=== PATIENT | female | born 1990 | race Caucasian/White ===

== ENCOUNTER 2017-01-20 14:59 | Emergency (ER) | payer OTHER ==
[2017-01-20 15:21] VITALS: BP 112/79
--- NOTE | 2017-01-20 15:55 | UC ---
Throat Pain/Nasal Miko HPI - HPI Summary HPI Summary: 26 [address] female [address] body aches and sore throat, concerned about possible strep throat, exposed by family member. Seen at [facility] yesterday, for dizziness and low blood pressure, diagnosed with vertigo. and daughter with (+) strep at home [ End ] - History of Current Complaint Chief Complaint: UCGeneralIllness Stated Complaint: BODY ACHES,FEVER,THROAT Time Seen by Provider: 01/20/17 15:39 Hx Last Menstrual Period: 01/05/17 Onset/Duration: Sudden Onset - Allergies/Home Medications Allergies/Adverse Reactions: Allergies Allergy/AdvReac Type Severity Reaction Status Date / Time Hydrocodone Allergy Anaphylatic Verified 01/20/17 15:21 Shock Home Medications: Home Medications Escitalopram Oxalate [Lexapro 20 mg] 20 mg PO DAILY 01/20/17 [History Confirmed 01/20/17] PMH/Surg Hx/FS Hx/Imm Hx Previously Healthy: Yes - Surgical History Surgical History: Yes Surgery Procedure, Year, and Place: GALL BLADDER, SEBCEOUS CYSTS REMOVED FROM NECK - Family History Known Family History: Positive: None - Social History Lives: With Family Alcohol Use: None Substance Use Type: None Smoking Status (MU): Light Every Day Tobacco Smoker Review of Systems ENT: Sore Throat, Nasal Discharge Is Patient Immunocompromised?: No All Other Systems Reviewed And Are Negative: Yes Physical Exam Triage Information Reviewed: Yes Appearance: Well-Appearing, No Pain Distress, Well-Nourished Vital Signs: Initial Vital Signs Temp 97.9 F 01/20/17 15:16 Pulse 78 01/20/17 15:16 Resp 16 01/20/17 15:16 BP 112/79 01/20/17 15:16 Pulse Ox 100 01/20/17 15:16 Eye Exam: Normal ENT Exam: Normal ENT: Positive: Hearing grossly normal, Pharyngeal erythema, TMs normal. Negative: Tonsillar swelling, Tonsillar exudate Dental Exam: Normal Neck exam: Normal Neck: Positive: 1 Respiratory Exam: Normal Cardiovascular Exam: Normal Musculoskeletal Exam: Normal Neurological Exam: Normal Psychological Exam: Normal Skin Exam: Normal Throat Pain/Nasal Course/Dx - Differential Dx/Diagnosis Differential Diagnosis/HQI/PQRI: Pharyngitis, Sinusitis, Tonsillitis, URI Provider Diagnoses: Strep throat Discharge - Discharge Plan Condition: Good Disposition: HOME Prescriptions: Amoxicillin PO (*) [Amoxicillin 500 MG CAP*] 500 mg PO Q12H #20 cap Patient Education Materials: Strep Throat (ED) Referrals: No Primary Care Phys,NOPCP [Medical Doctor] - Additional Instructions: Follow up with any concerns you have. Change your toothbrush please. Your strep test was positive today
== END 2017-01-20 16:16 | disposition home or self-care (01) ==
LOC: UCCORT 14:59
DX: J02.0 Streptococcal pharyngitis (principal); F17.200 Nicotine dependence, unspecified, uncomplicated
CPT/HCPCS: 87651; 99202; G0463

== ENCOUNTER 2017-03-05 20:06 | Emergency (ER) | payer OTHER ==
[2017-03-05 20:52] VITALS: BP 124/70
[2017-03-05] MEDS ORDERED: Amoxicillin/Clavulanate TAB* 875 MG PO ONE (21:03)
--- NOTE | 2017-03-05 21:17 | UC ---
Throat Pain/Nasal Miko HPI - HPI Summary HPI Summary: 26 y/o female with h/o sinus congestions, headache, body aches, fever, chills overnight worsening over past 2-3 days. tactile fever. no abdominal pains, N /v. no ear pain, throat pain. - History of Current Complaint Chief Complaint: UCRespiratory Stated Complaint: COLD SYMPTOMS Time Seen by Provider: 03/05/17 20:27 Hx Obtained From: Patient Hx Last Menstrual Period: 02/05/17 ?: No Onset/Duration: Sudden Onset, Lasting Days Severity: Moderate - Allergies/Home Medications Allergies/Adverse Reactions: Allergies Allergy/AdvReac Type Severity Reaction Status Date / Time Azithromycin Allergy Hives Verified 03/05/17 20:29 Hydrocodone Allergy Anaphylatic Verified 01/20/17 15:21 Shock Oxycodone Allergy Anaphylatic Verified 03/05/17 20:29 Shock Home Medications: Home Medications Dextromethorphan-Phenylephrine [Day Time Multi-Symptom Co 10-5-325 mg] 2 cap PO ONCE PRN 03/05/17 [History Confirmed 03/05/17] PMH/Surg Hx/FS Hx/Imm Hx Previously Healthy: Yes - Surgical History Surgical History: Yes Surgery Procedure, Year, and Place: GALL BLADDER, SEBCEOUS CYSTS REMOVED FROM NECK - Family History Known Family History: Positive: None - Social History Alcohol Use: None Substance Use Type: None Smoking Status (MU): Light Every Day Tobacco Smoker Type: Cigarettes Amount Used/How Often: 3 cigarettes daily Review of Systems Constitutional: Fever, Chills, Fatigue ENT: Nasal Discharge, Sinus Congestion, Sinus Pain/Tenderness Is Patient Immunocompromised?: No All Other Systems Reviewed And Are Negative: Yes Physical Exam Triage Information Reviewed: Yes Appearance: Well-Appearing, No Pain Distress, Well-Nourished Vital Signs: Initial Vital Signs Temp 97.6 F 03/05/17 20:30 Pulse 84 03/05/17 20:30 Resp 20 03/05/17 20:30 BP 124/70 03/05/17 20:30 Pulse Ox 100 03/05/17 20:30 Vital Signs Reviewed: Yes Eye Exam: Normal ENT: Positive: Pharynx normal, TMs normal - mild fluid behing TM b/l, Sinus tenderness, Uvula midline. Negative: Tonsillar swelling, Tonsillar exudate Neck: Positive: Supple, Nontender, No Lymphadenopathy Respiratory: Positive: Chest non-tender, Lungs clear, Normal breath sounds, No respiratory distress, No accessory muscle use. Negative: Crackles, Rhonchi, Stridor, Wheezing Cardiovascular: Positive: RRR, No Murmur, Pulses Normal Throat Pain/Nasal Course/Dx - Course Course Of Treatment: sinusitis, abx given, follow up with pcp within 2-3 days if no improvement - Differential Dx/Diagnosis Differential Diagnosis/HQI/PQRI: Influenza, Laryngitis, Otitis Media, Pharyngitis Provider Diagnoses: acute sinusitis Discharge - Discharge Plan Condition: Good Disposition: HOME Prescriptions: Amoxicillin/Clavulanate TAB* [Augmentin TAB 875*] 875 mg PO BID #14 tab Patient Education Materials: Sinusitis (ED) Referrals: No Primary Care Phys,NOPCP [Primary Care Provider] - Additional Instructions: - increase fluid intake - antibiotics as directed - motrin/ tylenol for pain, fever - follow up with PCP within 2-3 days if no improvement
== END 2017-03-05 21:34 | disposition home or self-care (01) ==
LOC: UCCORT 20:06
DX: J01.90 Acute sinusitis, unspecified (principal); Z90.49 Acquired absence of other specified parts of digestive tract; Z88.1 Allergy status to other antibiotic agents; Z88.5 Allergy status to narcotic agent; F17.210 Nicotine dependence, cigarettes, uncomplicated
CPT/HCPCS: 99212; A9270-GY; G0463

== ENCOUNTER 2017-12-22 16:56 | Emergency (ER) | payer OTHER ==
[2017-12-22 17:16] VITALS: BP 116/70
--- NOTE | 2017-12-22 18:10 | UC ---
Complaint Female HPI - HPI Summary HPI Summary: Pt c/o sudden onset of urinary frequency, urgency and dysuria X 2-3 days. Pt states she woke last night feeling "chilled and feverish" and took temperature and it was 101. Pt has been taking antipyretic and now is afebrile since 6 am this morning. Pt last took antipyretic at that time. - History Of Current Complaint Chief Complaint: UCGU Stated Complaint: URINARY, BACK PAIN Time Seen by Provider: 12/22/17 18:01 Hx Obtained From: Patient Hx Last Menstrual Period: 12/03/17 ?: No Onset/Duration: Sudden Onset, Lasting Days, Still Present Timing: Constant Severity Initially: Mild Severity Currently: Mild Pain Intensity: 5 Character: Dull, Burning Aggravating Factor(s): Urination Alleviating Factor(s): Meds Associated Signs And Symptoms: Positive: Fever - resolved, Back Pain - Risk Factors Ectopic Risk Factor: Negative Ovarian Torsion Risk Factor: Reproductive Age - Allergies/Home Medications Allergies/Adverse Reactions: Allergies Allergy/AdvReac Type Severity Reaction Status Date / Time MS Azithromycin Allergy Hives Verified 04/08/17 12:01 [Azithromycin] MS Hydrocodone [Hydrocodone] Allergy Anaphylatic Verified 04/08/17 12:01 Shock MS Oxycodone [Oxycodone] Allergy Anaphylatic Verified 04/08/17 12:01 Shock Home Medications: Home Medications Pantoprazole Sodium [Protonix] 20 mg PO DAILY 12/22/17 [History Confirmed ] Pumpkin Seed Extract/Soy Germ [Azo Bladder Control Capsule] 300 mg PO DAILY [History Confirmed 12/22/17] PMH/Surg Hx/FS Hx/Imm Hx Previously Healthy: Yes - Surgical History Surgical History: Yes Surgery Procedure, Year, and Place: GALL BLADDER, SEBCEOUS CYSTS REMOVED FROM NECK. ARTHROSCOPY BILATERAL KNEES - Family History Known Family History: Positive: Cardiac Disease - Social History Occupation: Employed Full-time Lives: With Family Alcohol Use: None Substance Use Type: None Smoking Status (MU): Former Smoker Type: Cigarettes Amount Used/How Often: 3 cigarettes daily Have You Smoked in the Last Year: Yes Review of Systems Constitutional: Fever Skin: Negative Eyes: Negative ENT: Negative Respiratory: Negative Cardiovascular: Negative Gastrointestinal: Negative Genitourinary: Dysuria, Hematuria, Frequency, Urgency Motor: Negative Neurovascular: Negative Musculoskeletal: Negative Neurological: Negative Psychological: Negative Is Patient Immunocompromised?: No All Other Systems Reviewed And Are Negative: Yes Physical Exam Triage Information Reviewed: Yes Appearance: Well-Appearing Vital Signs: Initial Vital Signs Temp 98.4 F 12/22/17 17:11 Pulse 78 12/22/17 17:11 Resp 16 12/22/17 17:11 BP 116/70 12/22/17 17:11 Pulse Ox 100 12/22/17 17:11 Vital Signs Reviewed: Yes Eye Exam: Normal ENT Exam: Normal ENT: Positive: Hearing grossly normal Neck exam: Normal Respiratory Exam: Normal Cardiovascular Exam: Normal Abdomen Description: Positive: Other: - suprapubic tenderness Musculoskeletal Exam: Normal Neurological Exam: Normal Psychological Exam: Normal Skin Exam: Normal Complaint Female Dx - Course Course Of Treatment: Pt took azo prior to arrival to clinic - Differential Dx/Diagnosis Differential Diagnosis/HQI/PQRI: Urinary Tract Infection Provider Diagnoses: dysuria Discharge - Sign-Out/Discharge Documenting (check all that apply): Patient Departure All imaging exams completed and their final reports reviewed: No Studies - Discharge Plan Condition: Stable Disposition: HOME Prescriptions: Cephalexin CAP* [Keflex 500 CAP*] 500 mg PO Q8H #21 cap Patient Education Materials: Dysuria (ED) Referrals: Alysa Guzmán NP [Primary Care Provider] - If Needed - Billing Disposition and Condition Condition: STABLE Disposition: Home
[2017-12-22] MEDS ORDERED: Cephalexin CAP* 500 MG PO ONE (18:11)
== END 2017-12-22 18:20 | disposition home or self-care (01) ==
LOC: UCCORT 16:56
DX: R35.0 Frequency of micturition (principal); Z88.1 Allergy status to other antibiotic agents; Z88.5 Allergy status to narcotic agent; Z87.891 Personal history of nicotine dependence
CPT/HCPCS: 87086; 99212; A9270-GY; G0463

== ENCOUNTER 2018-07-19 13:07 | Emergency (ER) | payer OTHER ==
--- OUTSIDE RECORDS SUMMARY | 2018-07-19 13:31 | XMS REPORT | Continuity of Care Document ---
:1990 External Reference #:[id number] Author Name Joe Dominguez MD Address [address] [place] [address] Care Team Providers Name Role Phone Alysa Guzmán, PNP-BC, PRODUCTION MACHINE TENDER, [place]cl[place] Care Team Information .Net Architect Unavailable Alysa Guzmán, ALEE-BC, PRODUCTION MACHINE TENDER, Ibclc Primary Care Physician Unavailable Payers Date Identification Numbers Payment Provider Subscriber Policy Number: [id number] [place] [employer] Tirso Jones PayID: [id number] [address] [place] [address] Expires: 2018 Policy Number: [id number] Medicaid Rachel Prasad Group Name: 1 2 [address] PayID: [id number] [place] [address] Advance Directives Description No Information Available Problems Date Description Provider Status Onset: 12/15/2013 [facility]arette [facility] Onset: 12/08/2015 Temporomandibular joint disorder Sierra Mabry M.D. Active Onset: 09/12/2016 Knee pain Yaniv Gomez M.D. Active Onset: 10/08/2016 Loose body in knee Elenita Downey, PA Active Onset: 10/08/2016 Chondromalacia Elenita Downey, PA Active Onset: 2016 Derangement of knee Elenita Downey, PA Active Onset: 01/14/2017 Synovial plica of knee Elenita Downey PA Active Onset: 04/23/2017 Pile reducible with difficulty Brien Childress MD,FACS Active Onset: 03/04/2017 Palpitations Francisco Chris Active M.D., [facility] Onset: 03/04/2017 Syncope and collapse Francisco Chris Active M.D., [facility] Onset: 03/04/2017 Anaphylaxis Francisco Chris Active M.D., [facility] Onset: 02/13/2017 Localized, primary osteoarthritis Yaniv Gomez M.D. Active Onset: 03/23/2015 Normal Jennifer Hunt MD Resolved Resolved: 12/08/2015 Onset: 10/31/2016 Anaphylactic shock, unspecified, Yaniv Gomez M.D. Resolved subsequent encounter Resolved: 11/28/2016 Family History Date Family Member(s) Observation Comments Father 53 Father Gastroesophageal Reflux Disease (GERD) Father Hiatal Herna Father Cholecystectomy Father Heart Attack Mother healthy Mother 55 Onset: (age 4 Children 1 Hypoplastic left heart, Months) esophageal atresia. heart & lung disease First Daughter due to RI () First Daughter Congenital Heart Disease Siblings None First Brother Heart Murmur Second Brother Cerebrovascular Accident Second Brother Heart Attack First Sister Gastroesophageal Reflux Disease (GERD) First Sister Breast Cancer Social History Type Date Description Comments Sex Unknown Marital Status Lives With Children Lives With Home Environment Lives with spouse Diet Patient follows no dietary restrictions Occupation Office Services Specialist membership sales advisor Work Status Currently Working Cigarette Use Pack Years - 10 Tobacco Use Start: Unknown Currently smokes 1-5 Cigarettes Daily Smoking Status Reviewed: 06/23/18 Currently smokes 1-5 Cigarettes Daily Smokeless Tobacco Never Used Smokeless Tobacco ETOH Use Denies alcohol use Recreational Drug Use Denies Drug Use Tobacco Use Start: Unknown End: Patient is a former smoker Allergies, Adverse Reactions, Alerts Date Description Reaction Status Severity Comments 12/16/2013 Azithromycin Nausea and Vomiting Active 10/01/2016 Oxycodone Active 2016 [place] Active 08/29/2010 NKDA Inactive Medications Medication Date Status Form Strength Qnty SIG Indications Ordering Provider Adult 06/24/19 Active Chewtabs 0.4-25mg 90uni 1 tab by Z32.01 Joe Dominguez, Gummy/Dha/Folic 19 ts mouth MD Acid every day as directed Ranitidine 150 06/24/19 Active Tablets 150mg 60tab 1 tab Joe Dominguez, Maximum 19 s bid MD Strength Lexapro 11/29/19 Active Tablets 20mg 90tab 1 by F33.1 Ramirez, 18 s mouth Alysa, every PNP-BC, PRODUCTION MACHINE TENDER, day Ibclc Epinephrine Active Solution 0.3mg/0.3 as Yomi, 00 Auto-Inje ML directed SANJEEV Lopez ct Ventolin HFA Active Aerosol 108(90Bas as Pieretti, 00 e) needed Kelsey mcg/Act Ra Vitamin B-1 Active Tablets 100mg Unknown 00 Lidocaine 05/12/19 Hx Gel 2.8-0.55% 100gm apply by K64.9 Ramirez, ISAIAH-Hydrocortis 19 - way of Alysa, one Acetate 05/12/19 rectum PNP-BC, PRODUCTION MACHINE TENDER, With Aloe 19 twice a Ibclc day Lidocaine 05/12/19 Hx Cream 5% 30gm apply to K64.9 Ramirez, (Anorectal) 19 - anal Alysa, 06/24/19 area as PNP-BC, PRODUCTION MACHINE TENDER, 19 needed Ibclc every 4 hours Clonidine HCL 05/12/19 Hx Tablets 0.1mg 120ta take one G47.00 Ramirez 19 - bs to three Alysa, 06/24/19 tablets PNP-BC, PRODUCTION MACHINE TENDER, 19 at Ibclc bedtime as needed Nicorelief 10/08/19 Hx Gum 2mg 50uni 1 by F17.210 Ramirez, 18 - ts mouth as Alysa, 05/12/19 needed PNP-BC, PRODUCTION MACHINE TENDER, 19 Ibclc Sertraline HCL 10/08/19 Hx Tablets 50mg 90tab 1 by F33.1 Ramirez, 18 - s mouth Alysa, 11/29/19 every PNP-BC, PRODUCTION MACHINE TENDER, 18 day Ibclc Benzonatate 05/27/19 Hx Capsules 100mg 30cap 1 by J20.9 Ramirez, 18 - s mouth Alysa, 07/05/19 three PNP-BC, PRODUCTION MACHINE TENDER, 18 times a Ibclc day as needed for cough Amoxicillin/Cla 05/27/19 Hx Tablets 875-125mg 20tab 1 by J20.9 Ramirez vulanate 18 - s mouth Alysa, Potassium 06/07/19 twice a PNP-BC, PRODUCTION MACHINE TENDER, 18 day for Ibclc 10 days Rectiv 04/23/19 Hx Ointment 0.4% 1unit 1 inch K60.2 Gayle, 18 - s intra-an MD Spencer 05/27/19 ally 18 every 12 h Lidocaine 04/23/19 Hx Cream 5% 30gm apply to K64.2 Fior, (Anorectal) 18 - anal Brien, 05/27/19 area as MDFACS 18 needed every 4 hours Metronidazole 03/28/20 Hx Tablets 500mg 14tab 500 mg Sierra Mabry, 17 - s by mouth M.D. Unknown q12 x 7 days Tramadol HCL 12/27/19 Hx Tablets 50mg 25tab 1 by M23.91 Patricia, 17 - s mouth Yaniv, Unknown every 6 M.D. hour as needed pain Famotidine 12/22/19 Hx Tablets 40mg 30tab 1 tab by K21.9 Sierra Mabry, 17 - s mouth M.D. 10/08/19 every 18 daily Lexapro 11/22/19 Hx Tablets 20mg 30tab 1 by F33.1 Sierra Mabry, 17 - s mouth M.D. 10/08/19 every 18 day Zolpidem 10/24/19 Hx Tablets 5mg 15tab take B27.90 Ramirez, Tartrate 17 - s 0.5-1 Alysa, 02/14/20 tablet PNP-MELI, PRODUCTION MACHINE TENDER, 17 by mouth Ibclc at bedtime as needed for insomnia Referenc e #: [id number] Oxycodone HCL 09/21/19 Hx Tablets 5mg 40tab 1-2 Patricia, 17 - s every Yaniv, 10/02/19 4-6 hour M.D. 17 as needed pain Oxycodone HCL 09/21/19 Hx Tablets 5mg 40tab 1-2 M25.562 Patricia, 17 - s every Yaniv, 10/02/19 4-6 hour M.D. 17 as needed pain Naproxen 08/23/19 Hx Tablets 500mg 30tab 1 by M25.562 Sierra Mabry, 17 - s mouth M.DMalia 10/02/19 twice a 17 day with food Cholestyramine 08/22/19 Hx Powder 4GM/Dose 30uni unit by R10.13 Stella Araujo 17 - ts mouth MD Spencer 09/13/19 twice a 17 day with large glass of water per pt only as needed Nicotine 02/21/20 Hx Patches 7mg/24HR 30uni 7 mg F17.210 Sierra Mabry, 16 - 24HR ts yenifer Hunter 07/20/19 mal 17 every 24 hours, alternat e applicat ion sites Lexapro 08/22/19 Hx Tablets 10mg 30tab 1 by Ramirez, 16 - s mouth Alysa, 11/22/19 every PNP-BC, PRODUCTION MACHINE TENDER, 17 day Ibclc Nifedipine ER 05/25/19 Hx Tablets 30mg 30tab 1 by Marilee 16 - ER 24HR s mouth Jennifer, 12/08/19 once a 16 day Guaifenesin ER 04/28/19 Hx Tablets 600mg 60tab 1 by Marilee 16 - ER 12HR s mouth Jennifer, 08/11/19 twice a MD 16 day. Macrobid 02/09/20 Hx Capsules 100mg 14cap 1 by Marilee 15 - s mouth Jennifer, 02/22/20 twice a 15 day Lexapro 07/15/19 Hx Tablets 10mg 30tab 1 by Marilee 15 - s mouth Jennifer, 08/11/19 every MD 16 day Cefprozil 12/17/19 Hx Tablets 500mg 20tab 1 tab by Santiago 14 - s mouth Bethany, 01/20/20 twice a MD 15 day Nexplanon 03/16/20 Hx Implant 68mg Santiago 13 - Bethany, 01/20/20 15 Cholestyramine 10/20/19 Hx Packet 4gm 60uni 1 packet V67.09 Padmini 11 - ts when Lance 01/20/20 annalee Nj M.D. 15 fatty meal Prevacid Hx Capsules 30mg 60cap 1 by Marilee 00 - DR s mouth Jennifer, 08/11/19 every MD 16 day Lexapro Hx Tablets 10mg 30tab 1 po qd Unknown 00 - s 07/15/19 15 Aleve / Hx Capsules 220mg 1 when Unknown 00 - needed 10/02/19 17 Cyclobenzaprine Hx Tablets 10mg Unknown HCL - 10/02/19 17 Ibuprofen Hx Tablets 600mg Unknown 00 - Unknown Methylprednisol Hx TBPK 4mg Yomi, one - JessicaSHYC 10/09/19 17 Ranitidine HCL Hx Tablets 150mg Yomi, 00 - JessicaSHYC 10/09/19 17 Ra Allergy Hx Capsules 25mg Yomi, Medication - JessicaSHYC 10/09/19 17 Cyclobenzaprine Hx Tablets 10mg Unknown HCL - 10/09/19 17 Tramadol HCL Hx Tablets 50mg two tabs Unknown 00 - po 4 07/05/19 times a 18 day Pantoprazole Hx Tablets 40mg Unknown Sodium 00 - DR 06/24/19 19 Immunizations CPT Code Status Date Vaccine Lot # [id number] Given 01/06/2018 Influenza Virus Vaccine, Quadrivalent, 36 Mos+, [id number] Q2038 Given 12/08/2015 Influenza Vaccine (Fluzone) Age 3 And Older [id number] Given 06/02/2015 Influenza Vaccine (Fluzone) Age 3 And Older [id number] 84818 Given 02/03/2013 Tdap injection 76945 Given 12/18/2012 flu vaccination 79125 Given 08/04/2011 Tdap injection 73552 Given 12/20/2010 flu vaccination 68393 Given 12/20/2010 flu vaccination 44732 Given 05/01/2010 Tdap injection 69365 Given 12/29/2009 flu vaccination 35274 Given 12/29/2009 flu vaccination 53722 Given 01/31/2009 flu vaccination 61869 Given 01/31/2009 H1N1 Immuniation Adminstration 94485 Given 01/31/2009 H1N1 Immuniation Adminstration 97600 Given 12/24/2008 flu vaccination 57907 Given 12/24/2008 flu vaccination 85042 Given 03/10/2008 flu vaccination 09512 Given 06/23/2007 Meningococcal Conjugate Vaccine Serogroups For Intramuscular Use 95747 Given 02/05/2007 Gardasil 40457 Given 10/08/2006 Gardasil 04465 Given 08/07/2006 Gardasil 11153 Given 03/06/2006 flu vaccination 42235 Given 07/20/2005 Tetnus Injection 04826 Given 11/28/1998 Poliovirus Vaccine Oral 93965 Given 11/28/1998 DTaP Vaccine Younger Than 7 19846 Given 11/28/1993 MMR Vaccine, Live, For Subcutaneous Use 66368 Given 06/19/1990 Poliovirus Vaccine Oral 38595 Given 06/10/1990 DTaP Vaccine Younger Than 7 40797 Given 06/10/1990 Hib PRP-T Conjugate 4 Dose Schedule 06389 Given 03/27/1990 MMR Vaccine, Live, For Subcutaneous Use 99283 Given 07/17/1989 DTaP Vaccine Younger Than 7 36035 Given 04/26/1989 Poliovirus Vaccine Oral 73221 Given 04/26/1989 DTaP Vaccine Younger Than 7 90867 Given 02/13/1989 Poliovirus Vaccine Oral 00594 Given 02/08/1989 DTaP Vaccine Younger Than 7 Vital Signs Date Vital Result Comment 06/23/2018 1:48pm BP Systolic 122 mmHg BP Diastolic 78 mmHg Heart Rate 66 /min Respiratory Rate 18 /min Height 64 inches 5'4" Weight 143.12 lb BMI (Body Mass Index) 24.6 kg/m2 BSA (Body Surface Area) 1.70 m2 [place] body weight in kilograms 54 kg O2 % BldC Oximetry 100 % Ra 05/12/2018 11:24am BP Systolic 120 mmHg BP Diastolic 74 mmHg Body Temperature 98.6 F Heart Rate 78 /min Respiratory Rate 18 /min Height 64 inches 5'4" Weight 156.12 lb BMI (Body Mass Index) 26.8 kg/m2 BSA (Body Surface Area) 1.76 m2 [place] body weight in kilograms 54 kg O2 % BldC Oximetry 98 % 01/15/2018 7:30am BP Systolic 120 mmHg BP Diastolic 64 mmHg Body Temperature 97.1 F Heart Rate 78 /min Respiratory Rate 16 /min 01/13/2018 6:54am Height 64.02 inches 5'4.02" Weight 216.00 lb BMI (Body Mass Index) 37.08 kg/m2 10/07/2017 2:36pm BP Systolic 108 mmHg BP Diastolic 68 mmHg Body Temperature 98.5 F Heart Rate 119 /min Respiratory Rate 17 /min Height 65 inches 5'5" Weight 215.00 lb BMI (Body Mass Index) 35.8 kg/m2 BSA (Body Surface Area) 2.04 m2 [place] body weight in kilograms 57 kg O2 % BldC Oximetry 98 % 09/10/2017 4:03pm BP Systolic 102 mmHg BP Diastolic 68 mmHg Body Temperature 98.5 F Heart Rate 89 /min Respiratory Rate 16 /min Height 65 inches 5'5" Weight 214.00 lb BMI (Body Mass Index) 35.6 kg/m2 BSA (Body Surface Area) 2.04 m2 [place] body weight in kilograms 57 kg O2 % BldC Oximetry 98 % 07/04/2017 10:56am BP Systolic Sitting Left Arm 142 mmHg BP Diastolic Sitting Left Arm 82 mmHg Body Temperature 98.4 F Heart Rate 97 /min Weight 219.12 lb O2 % BldC Oximetry 98 % 05/27/2017 2:31pm BP Systolic 116 mmHg BP Diastolic 74 mmHg Body Temperature 98.3 F Heart Rate 134 /min Respiratory Rate 18 /min Height 65 inches 5'5" Weight 223.00 lb BMI (Body Mass Index) 37.1 kg/m2 BSA (Body Surface Area) 2.07 m2 [place] body weight in kilograms 57 kg O2 % BldC Oximetry 98 % 04/23/2017 8:39am BP Systolic Sitting Left Arm 124 mmHg BP Diastolic Sitting Left Arm 80 mmHg Heart Rate 87 /min Respiratory Rate 16 /min Height 65 inches 5'5" Weight 214.00 lb BMI (Body Mass Index) 35.6 kg/m2 BSA (Body Surface Area) 2.04 m2 [place] body weight in kilograms 57 kg 03/27/2017 9:40am BP Systolic Sitting Left Arm 106 mmHg BP Diastolic Sitting Left Arm 70 mmHg Height 65 inches 5'5" Weight 216.12 lb BMI (Body Mass Index) 36.0 kg/m2 BSA (Body Surface Area) 2.04 m2 [place] body weight in kilograms 57 kg 03/04/2017 10:10am BP Systolic Sitting Right Arm 116 mmHg BP Diastolic Sitting Right Arm 76 mmHg Heart Rate 73 /min Respiratory Rate 14 /min Height 64 inches 5'4" Weight 215.00 lb BMI (Body Mass Index) 36.9 kg/m2 BSA (Body Surface Area) 2.02 m2 [place] body weight in kilograms 54 kg 02/13/2017 1:22pm BP Systolic 132 mmHg BP Diastolic 88 mmHg Body Temperature 99.0 F Heart Rate 76 /min Respiratory Rate 15 /min Height 64 inches 5'4" Weight 207.00 lb BMI (Body Mass Index) 35.5 kg/m2 BSA (Body Surface Area) 1.99 m2 [place] body weight in kilograms 54 kg 01/14/2017 9:01am BP Systolic 129 mmHg BP Diastolic 84 mmHg Body Temperature 97.9 F Heart Rate 76 /min 2016 2:36pm BP Systolic Sitting Right Arm 115 mmHg BP Diastolic Sitting Right Arm 72 mmHg Body Temperature 99.1 F Heart Rate 96 /min Height 64 inches 5'4" Weight 210.25 lb BMI (Body Mass Index) 36.1 kg/m2 BSA (Body Surface Area) 2.00 m2 [place] body weight in kilograms 54 kg 12/21/2016 10:30am BP Systolic 134 mmHg BP Diastolic 88 mmHg Body Temperature 98.4 F Heart Rate 80 /min Height 64 inches 5'4" Weight 211.00 lb BMI (Body Mass Index) 36.2 kg/m2 BSA (Body Surface Area) 2.00 m2 [place] body weight in kilograms 54 kg O2 % BldC Oximetry 99 % 11/21/2016 12:00pm BP Systolic Sitting Left Arm 102 mmHg BP Diastolic Sitting Left Arm 70 mmHg Height 64 inches 5'4" Weight 210.12 lb BMI (Body Mass Index) 36.1 kg/m2 BSA (Body Surface Area) 2.00 m2 [place] body weight in kilograms 54 kg 10/23/2016 1:00pm BP Systolic 112 mmHg BP Diastolic 74 mmHg Body Temperature 97.7 F Height 64 inches 5'4" Weight 212.00 lb BMI (Body Mass Index) 36.4 kg/m2 BSA (Body Surface Area) 2.01 m2 [place] body weight in kilograms 54 kg 10/09/2016 11:42am BP Systolic 108 mmHg BP Diastolic 76 mmHg Body Temperature 97.8 F Height 64 inches 5'4" Weight 212.00 lb BMI (Body Mass Index) 36.4 kg/m2 BSA (Body Surface Area) 2.01 m2 [place] body weight in kilograms 54 kg 10/08/2016 11:08am BP Systolic Sitting Right Arm 116 mmHg BP Diastolic Sitting Right Arm 83 mmHg Heart Rate 90 /min Height 64 inches 5'4" Weight 213.00 lb BMI (Body Mass Index) 36.6 kg/m2 BSA (Body Surface Area) 2.01 m2 [place] body weight in kilograms 54 kg 10/03/2016 10:00am BP Systolic Sitting Right Arm 118 mmHg BP Diastolic Sitting Right Arm 76 mmHg Body Temperature 98.1 F Height 64 inches 5'4" Weight 217.00 lb BMI (Body Mass Index) 37.2 kg/m2 BSA (Body Surface Area) 2.03 m2 [place] body weight in kilograms 54 kg 10/01/2016 12:14pm BP Systolic Sitting Left Arm 128 mmHg BP Diastolic Sitting Left Arm 72 mmHg Body Temperature 98.4 F Height 64 inches 5'4" Weight 217.00 lb BMI (Body Mass Index) 37.2 kg/m2 BSA (Body Surface Area) 2.03 m2 [place] body weight in kilograms 54 kg 09/20/2016 1:35pm Heart Rate 88 /min Height 64 inches 5'4" Weight 212.00 lb BMI (Body Mass Index) 36.4 kg/m2 BSA (Body Surface Area) 2.01 m2 [place] body weight in kilograms 54 kg 09/12/2016 2:10pm BP Systolic Sitting Left Arm 120 mmHg BP Diastolic Sitting Left Arm 86 mmHg Height 63.5 inches 5'3.50" Weight 212.00 lb BMI (Body Mass Index) 37.0 kg/m2 BSA (Body Surface Area) 1.99 m2 [place] body weight in kilograms 53 kg 08/22/2016 1:09pm BP Systolic Sitting Right Arm 122 mmHg BP Diastolic Sitting Right Arm 68 mmHg Body Temperature 98.8 F Heart Rate 77 /min Respiratory Rate 20 /min Weight 216.12 lb O2 % BldC Oximetry 98 % 08/21/2016 1:09pm BP Systolic Sitting Left Arm 118 mmHg BP Diastolic Sitting Left Arm 82 mmHg Heart Rate 72 /min Respiratory Rate 16 /min Height 65 inches 5'5" Weight 213.00 lb BMI (Body Mass Index) 35.4 kg/m2 BSA (Body Surface Area) 2.03 m2 [place] body weight in kilograms 57 kg 08/02/2016 9:16am BP Systolic Sitting Right Arm 124 mmHg BP Diastolic Sitting Right Arm 72 mmHg Body Temperature 98.9 F Heart Rate 83 /min Weight 217.00 lb O2 % BldC Oximetry 99 % 07/26/2016 11:07am BP Systolic Sitting Left Arm 120 mmHg BP Diastolic Sitting Left Arm 78 mmHg Heart Rate 78 /min Respiratory Rate 16 /min Height 65 inches Weight 215.00 lb BMI (Body Mass Index) 35.8 kg/m2 BSA (Body Surface Area) 2.04 m2 07/19/2016 4:45pm BP Systolic Sitting Left Arm 126 mmHg BP Diastolic Sitting Left Arm 74 mmHg Heart Rate 62 /min Height 65 inches 5'5" Weight 213.38 lb BMI (Body Mass Index) 35.5 kg/m2 BSA (Body Surface Area) 2.03 m2 Last Menstrual Period [id number] 03/21/2016 3:06pm Height 65 inches 5'5" Weight 211.00 lb BMI (Body Mass Index) 35.1 kg/m2 BSA (Body Surface Area) 2.02 m2 [place] body weight in kilograms 57 kg 03/07/2016 9:42am Height 65 inches 5'5" Weight 218.00 lb BMI (Body Mass Index) 36.3 kg/m2 BSA (Body Surface Area) 2.05 m2 [place] body weight in kilograms 57 kg 02/21/2016 1:37pm BP Systolic Sitting Right Arm 120 mmHg BP Diastolic Sitting Right Arm 70 mmHg Height 65 inches 5'5" Weight 218.00 lb BMI (Body Mass Index) 36.3 kg/m2 BSA (Body Surface Area) 2.05 m2 [place] body weight in kilograms 57 kg Last Menstrual Period [id number] 12/08/2015 3:03pm BP Systolic Sitting Right Arm 130 mmHg BP Diastolic Sitting Right Arm 88 mmHg Heart Rate 86 /min Respiratory Rate 18 /min Height 65 inches 5'5" Weight 212.00 lb BMI (Body Mass Index) 35.3 kg/m2 BSA (Body Surface Area) 2.03 m2 [place] body weight in kilograms 57 kg Last Menstrual Period [id number] 08/11/2015 4:24pm BP Systolic 100 mmHg BP Diastolic 60 mmHg Height 65 inches 5'5" Weight 195.38 lb BMI (Body Mass Index) 32.5 kg/m2 BSA (Body Surface Area) 1.96 m2 06/16/2015 6:10pm BP Systolic 140 mmHg BP Diastolic 82 mmHg Weight 213.12 lb 06/09/2015 6:46pm BP Systolic 132 mmHg BP Diastolic 80 mmHg Weight 215.12 lb 06/02/2015 5:09pm BP Systolic 130 mmHg BP Diastolic 80 mmHg Height 62 inches 5'2" Weight 215.12 lb BMI (Body Mass Index) 39.3 kg/m2 BSA (Body Surface Area) 1.97 m2 05/18/2015 5:32pm BP Systolic 132 mmHg BP Diastolic 84 mmHg Height 63 inches 5'3" Weight 212.00 lb BMI (Body Mass Index) 37.6 kg/m2 BSA (Body Surface Area) 1.98 m2 05/05/2015 6:14pm BP Systolic 144 mmHg BP Diastolic 86 mmHg Height 62 inches 5'2" Weight 216.00 lb BMI (Body Mass Index) 39.5 kg/m2 BSA (Body Surface Area) 1.98 m2 04/28/2015 11:51am BP Systolic 112 mmHg BP Diastolic 76 mmHg Weight 215.00 lb 04/13/2015 6:18pm BP Systolic 126 mmHg BP Diastolic 82 mmHg Height 63 inches 5'3" Weight 216.25 lb BMI (Body Mass Index) 38.3 kg/m2 BSA (Body Surface Area) 2.00 m2 03/23/2015 2:19pm BP Systolic 128 mmHg BP Diastolic 80 mmHg Height 63 inches 5'3" Weight 212.50 lb BMI (Body Mass Index) 37.6 kg/m2 BSA (Body Surface Area) 1.98 m2 02/21/2015 2:51pm BP Systolic 120 mmHg BP Diastolic 80 mmHg Height 63 inches 5'3" Weight 209.25 lb BMI (Body Mass Index) 37.1 kg/m2 BSA (Body Surface Area) 1.97 m2 01/19/2015 1:55pm BP Systolic 134 mmHg BP Diastolic 62 mmHg Height 65 inches 5'5" Weight 202.25 lb BMI (Body Mass Index) 33.7 kg/m2 BSA (Body Surface Area) 1.99 m2 12/15/2013 1:32pm BP Systolic 112 mmHg BP Diastolic 68 mmHg Body Temperature 98.5 F Height 65 inches 5'5" Weight 185.00 lb 04/14/2013 1:06pm BP Systolic 110 mmHg BP Diastolic 78 mmHg Heart Rate 64 /min Height 65 inches 5'5" Weight 179.00 lb 09/15/2012 3:11pm BP Systolic 104 mmHg BP Diastolic 64 mmHg Height 65 inches 5'5" Weight 191.00 lb 07/07/2012 4:24pm BP Systolic 108 mmHg BP Diastolic 62 mmHg Body Temperature 98.2 F Height 65 inches 5'5" Weight 189.00 lb 06/17/2012 4:30pm Height 65 inches 5'5" 06/02/2012 6:52pm BP Systolic 116 mmHg BP Diastolic 70 mmHg Height 65 inches 5'5" Weight 196.00 lb 12/20/2011 3:08pm BP Systolic 124 mmHg BP Diastolic 76 mmHg Body Temperature 98.5 F Height 65 inches 5'5" Weight 207.00 lb 11/06/2011 1:18pm BP Systolic 118 mmHg BP Diastolic 70 mmHg Height 65 inches 5'5" Weight 204.00 lb 10/12/2011 11:33am BP Systolic 118 mmHg BP Diastolic 78 mmHg Height 65 inches 5'5" Weight 202.00 lb 09/18/2011 11:20am BP Systolic 130 mmHg BP Diastolic 82 mmHg Height 65 inches 5'5" Weight 210.00 lb 07/17/2011 11:55am BP Systolic 118 mmHg BP Diastolic 76 mmHg Height 65 inches 5'5" Weight 223.00 lb 04/19/2011 11:26am BP Systolic 114 mmHg BP Diastolic 76 mmHg Height 65 inches 5'5" Weight 212.00 lb 12/06/2010 4:21pm BP Systolic 128 mmHg BP Diastolic 82 mmHg Body Temperature 99.3 F Height 65 inches 5'5" Weight 203.00 lb 11/23/2010 10:39am BP Systolic 118 mmHg BP Diastolic 76 mmHg Body Temperature 97.6 F Height 65 inches 5'5" Weight 200.00 lb 11/16/2010 1:45pm BP Systolic 118 mmHg BP Diastolic 60 mmHg Body Temperature 98.1 F Height 65 inches 5'5" Weight 203.00 lb 11/13/2010 1:40pm BP Systolic 100 mmHg BP Diastolic 60 mmHg Body Temperature 97.6 F Height 65 inches 5'5" Weight 201.00 lb 11/09/2010 2:22pm BP Systolic 124 mmHg BP Diastolic 72 mmHg Body Temperature 99.2 F Height 65 inches 5'5" Weight 204.00 lb 11/01/2010 3:07pm BP Systolic 110 mmHg BP Diastolic 70 mmHg Body Temperature 98.1 F Height 65 inches 5'5" Weight 204.00 lb 08/30/2010 8:51am BP Systolic Sitting Right Arm 116 mmHg BP Diastolic Sitting Right Arm 70 mmHg Heart Rate 47 /min Respiratory Rate 18 /min Height 65 inches 5'5" Weight 201.00 lb BMI (Body Mass Index) 33.4 kg/m2 Last Menstrual Period [id number] Results Test Date Facility Test Result H/L Range Note Urine HCG 06/23/2018 [facility] Misc Positive (Qualitative) Laboratory test 05/12/2018 [facility] Poc Urine HCG Negative Negative finding Urine Dipstick 05/12/2018 [facility] Ua Color Dark Yellow Yellow Ua Clarity Clear Clear Ua Leuko Negative Negative Ua Nitrite Negative Negative Ua Urobilinogen Negative Low 0.2 - 1.0 E.U./dL Ua Protein Negative Negative Ua PH 6.0 Low 6.5-7.5 Ua Blood Negative Negative Ua Specific [place] 1.015 1.010-1.030 Ua Ketones 3+ High Negative Ua Bilirubin Negative Negative Ua Glucose Negative Negative Laboratory test finding 01/14/2018 N2N/CCD Import 28.5 pg 26.0 - 34.0 Anion Gap 9 mmol/L 3 - 11 BUN/Creatinine Ratio 9 6 - 22 Laboratory test finding 01/13/2018 N2N/[facility] Import Abo/RH Type B Pos Antibody Screen Interp Neg Laboratory test 01/13/2018 N2N/CCD Import Qualitative Urine HCG Acceptable finding Internal Control (Poct) Urine Test (Poct) Neg Neg Urine Culture And 12/22/2017 [facility] Laboratory Urine SEE RESULT 1, 2 Sensitivities [phone] Culture BELOW Comprehensive 05/29/2017 [facility] Glucose 115 mg/dL High 74-1 3 Metabolic Panel [address] [place] [address] [phone] BUN 14 mg/dL N 7-18 Creatinine 0.9 mg/dL N 0.6-1.3 Glom Filtration Rate, Estimate >60 mL/min >60 If >60 mL/min >60 4 BUN/Creat 15.5 ratio Sodium 138 mmol/L N 136-145 Potassium 4.0 mmol/L N 3.5-5.1 Chloride 106 mmol/L N 98-107 Carbon Dioxide 27 mmol/L N 21-32 Anion Gap 5 mEq/L Low 8-16 Calcium 8.7 mg/dL N 8.5-10.1 Total Protein 8.2 g/dL N 6.4-8.2 Albumin 3.9 g/dL N 3.4-5.0 Globulin 4.3 g/dL N 1.9-4.3 Alb/Glob 0.9 ratio Bilirubin,Total 0.4 mg/dL N 0.2-1.0 Sgot/Ast 18 U/L N 15-37 SGPT/Alt 26 U/L N 12-78 Alkaline Phosphatase 94 U/L N 45-117 Reflex add FT3? Y Reflex add FT4? Y Glycohemoglobin A1c 05/29/2017 [facility] Glycohemoglobin 5.3 % N 4.2-6.[address] (A1c) [place] [address] [phone] eAG 105 mg/dL LDL Cholesterol Profile 05/29/2017 [facility] Cholesterol 187 mg/dL <[address] [place], [place] [id number] [phone] Triglycerides 175 mg/dL High <150 7 HDL Cholesterol 35 mg/dL Low >40 8 LDL-Cholesterol 117 mg/dL < 100 9 Reflex add FT3? Y Reflex add FT4? Y Prolactin 05/29/2017 [facility] Prolactin 8.6 ng/mL [address] [place] [address] [phone] Reflex add FT3? Y Reflex add FT4? Y FSH 05/29/2017 [facility] FSH 6.6 mIU/mL [address] [place] [address] [phone] Reflex add FT3? Y Reflex add FT4? Y Luteinizing Hormone 05/29/2017 [facility] Luteinizing 6.9 mIU/mL [address] [place], [place] [id number] [phone] Reflex add FT3? Y Reflex add FT4? Y Laboratory test 05/29/2017 [facility] Testosterone,Serum 44 ng/dL 8-[address] [place] [address] [phone] Testosterone Free Direct 4.1 pg/mL 0.0-4.2 TSH Reflex FT4 05/29/2017 [facility] Thyroid Stim 3.27 uIU/mL N 0.30-4.20 And/Or FT3 [address] [place], [place] [id number] [phone] Reflex add FT3? Y Reflex add FT4? Y Laboratory test 05/20/2017 [facility] D-Dimer, 0.27 ug/mL 13, [address] [place] [address] [phone] CBS W/Automated 04/18/2017 [facility] White Blood Count 7.4 K/uL N 3.1- [address] 10.7 [place] [address] [phone] Red Blood Count 4.45 M/uL N 3.90-5.40 Hemoglobin 12.8 gm/dL N 11.6-15.8 Hematocrit 38.2 % N 36.0-46.1 Mean Cell Volume 85.8 fl N 80.9-99.0 Mean Corpuscular HGB 28.8 pg N 25.9-32.7 Mean Corpuscular HGB Conc 33.5 g/dL N 30.8-34.3 Platelet Count 276 K/uL N 155-360 Red Cell Distri Width SD 39.7 fl N 3-47 Red Cell Distri Width %CV 13.0 % N 11.7-14.4 Mean Platelet Volume 11.0 fL N 8.9-12.4 Neut% 53.6 % N 40.4-72.8 Lymph % 38.8 % N 20.0-42.0 Weston % 6.6 % N 4.3-13.2 Eo% 0.9 % N 0.0-6.6 Bas% 0.1 % N 0.0-1.1 Neut# 3.98 K/uL N 1.8-7.0 Lymph # 2.88 K/uL N 1.0-4.0 Weston # 0.49 K/uL N 0.3-0.9 Eos # 0.07 K/uL N 0.0-0.5 Baso # 0.01 K/uL N 0.0-0.1 Comprehensive Metabolic 04/18/2017 [facility] Glucose 175 mg/dL High 74-[address] [place] [address] [phone] BUN 14 mg/dL N 7-18 Creatinine 1.1 mg/dL N 0.6-1.3 Glom Filtration Rate, Estimate >60 mL/min >60 If >60 mL/min >60 16 BUN/Creat 12.7 ratio Sodium 138 mmol/L N 136-145 Potassium 3.0 mmol/L Low 3.5-5.1 Chloride 105 mmol/L N 98-107 Carbon Dioxide 26 mmol/L N 21-32 Anion Gap 7 mEq/L Low 8-16 Calcium 8.1 mg/dL Low 8.5-10.1 Total Protein 7.8 g/dL N 6.4-8.2 Albumin 3.9 g/dL N 3.4-5.0 Globulin 3.9 g/dL N 1.9-4.3 Alb/Glob 1.0 ratio Bilirubin,Total 0.3 mg/dL N 0.2-1.0 Sgot/Ast 36 U/L N 15-37 SGPT/Alt 56 U/L N 12-78 Alkaline Phosphatase 88 U/L N 45-117 Chlamydia/GC 04/12/2017 [facility] Chlamydia Negative Negative 17 Tabitha, Urine [address] Trachomatis,[place] [address] -PCR [phone] Neisseria Gonorrhoeae,Ur -PCR Negative Negative 18 Affirm 03/27/2017 [facility] Trichomonas Negative [Negative] [address] [place] [address] [phone] Gardnerella vaginalis POSITIVE High [Negative] Maya species Negative [Negative] 20 Laboratory test 01/19/2017 [facility] Magnesium 2.0 mg/dL N 1.8-2.4 [address] [place] [address] [phone] CBS W/Automated 01/19/2017 [facility] White Blood 6.7 K/uL N 3.1-10.[address] [place] [address] [phone] Red Blood Count 4.66 M/uL N 3.90-5.40 Hemoglobin 13.5 gm/dL N 11.6-15.8 Hematocrit 40.4 % N 36.0-46.1 Mean Cell Volume 86.7 fl N 80.9-99.0 Mean Corpuscular HGB 29.0 pg N 25.9-32.7 Mean Corpuscular HGB Conc 33.4 g/dL N 30.8-34.3 Platelet Count 261 K/uL N 150-400 Red Cell Distri Width SD 39.3 fl N 3-47 Red Cell Distri Width %CV 12.6 % N 11.7-14.4 Mean Platelet Volume 11.0 fL N 8.9-12.4 Neut% 61.6 % N 40.4-72.8 Lymph % 29.8 % N 20.0-42.0 Weston % 6.4 % N 4.3-13.2 Eo% 2.1 % N 0.0-6.6 Bas% 0.1 % N 0.0-1.1 Neut# 4.13 K/uL N 1.8-7.0 Lymph # 2.00 K/uL N 1.0-4.0 Weston # 0.43 K/uL N 0.3-0.9 Eos # 0.14 K/uL N 0.0-0.5 Baso # 0.01 K/uL N 0.0-0.1 Laboratory 01/19/2017 [facility] HCG,Serum NEGATIVE (Negative) 22 test finding [address] (Qualitative) [place] [address] [phone] D-Dimer, Quantitative < 0.22 ug/mL 23 Laboratory 01/01/2017 [facility] Urine HCG NEGATIVE Negative 24, 25 test finding [address] (Qualitative) [place] [address] [phone] Ebv Acute 10/09/2016 [facility] Ebv AB Vca,Igm <36.0 U/mL 0.0-35.9 26, [address] [place] [address] [phone] Ebv Early Antigen AB, IgG <9.0 U/mL 0.0-8.9 28 Ebv AB Vca,Igg >600.0 U/mL High 0.0-17.9 29 Ebv Nuclear Antigen AB, Igg 149.0 U/mL High 0.0-17.9 30 Ebv Interpretation (SEE NOTE) 31 CBS W/Automated Diff 10/09/2016 [facility] White Blood 9.4 K/uL N 3.1-10.[address] [place] [address] [phone] Red Blood Count 4.63 M/uL N 3.90-5.40 Hemoglobin 13.3 gm/dL N 11.6-15.8 Hematocrit 39.6 % N 36.0-46.1 Mean Cell Volume 85.5 fl N 80.9-99.0 Mean Corpuscular HGB 28.7 pg N 25.9-32.7 Mean Corpuscular HGB Conc 33.6 g/dL N 30.8-34.3 Platelet Count 283 K/uL N 150-400 Red Cell Distri Width SD 41.1 fl N 3-47 Red Cell Distri Width %CV 13.3 % N 11.7-14.4 Mean Platelet Volume 12.0 fL N 8.9-12.4 Neut% 65.7 % N 40.4-72.8 Lymph % 25.5 % N 20.0-42.0 Weston % 6.7 % N 4.3-13.2 Eo% 1.9 % N 0.0-6.6 Bas% 0.2 % N 0.0-1.1 Neut# 6.17 K/uL N 1.8-7.0 Lymph # 2.40 K/uL N 1.0-4.0 Weston # 0.63 K/uL N 0.3-0.9 Eos # 0.18 K/uL N 0.0-0.5 Baso # 0.02 K/uL N 0.0-0.1 Monocytes/leuk NFr 09/28/2016 N2N/CCD Import Monocytes/leuk NFr 7.2 4.3- 13.2 Bld Auto Bld Auto Neutrophils # Bld 09/28/2016 N2N/CCD Import Neutrophils # Bld 5.45 1.8- 7.0 Auto Auto Neutrophils/leuk NFr 09/28/2016 N2N/CCD Import Neutrophils/leuk 63.4 40.4-72.8 Bld Auto NFr Bld Auto PMV Bld Auto 09/28/2016 N2N/CCD Import PMV Bld Auto 11.7 8.9-12.4 Platelets [#/volume] 09/28/2016 N2N/CCD Import Platelets 189 150-400 in Blood by [#/volume] in Blood Automated count by Automated count Potassium SerPl-sCnc 09/28/2016 N2N/CCD Import Potassium 3.6 3.5-5.1 SerPl-sCnc Prot SerPl-mCnc 09/28/2016 N2N/CCD Import Prot SerPl-mCnc 6.8 6.4-8.2 RBC # Bld Auto 09/28/2016 N2N/CCD Import RBC # Bld Auto 4.03 3.90-5.40 RDW RBC Auto 09/28/2016 N2N/CCD Import RDW RBC Auto 40.3 3-47 RDW RBC Auto-Rto 09/28/2016 N2N/CCD Import RDW RBC Auto-Rto 13.2 11.7- 14.4 Serum or plasma 09/28/2016 N2N/CCD Import Serum or plasma 89 26-192 creatine kinase creatine kinase measurement (enzym measurement (enzymatic activity/volume) Sodium SerPl-sCnc 09/28/2016 N2N/CCD Import Sodium SerPl-sCnc 141 136- 145 WBC # Bld Auto 09/28/2016 N2N/CCD Import WBC # Bld Auto 8.6 3.1-10.7 CBS W/Automated Diff 09/28/2016 [facility] White Blood Count 8.6 K/uL N 3.1- 10.7 32 [address] [place] [address] [phone] Red Blood Count 4.03 M/uL N 3.90-5.40 Hemoglobin 11.6 gm/dL N 11.6-15.8 Hematocrit 34.3 % Low 36.0-46.1 Mean Cell Volume 85.1 fl N 80.9-99.0 Mean Corpuscular HGB 28.8 pg N 25.9-32.7 Mean Corpuscular HGB Conc 33.8 g/dL N 30.8-34.3 Platelet Count 189 K/uL N 150-400 Red Cell Distri Width SD 40.3 fl N 3-47 Red Cell Distri Width %CV 13.2 % N 11.7-14.4 Mean Platelet Volume 11.7 fL N 8.9-12.4 Neut% 63.4 % N 40.4-72.8 Lymph % 27.6 % N 20.0-42.0 Weston % 7.2 % N 4.3-13.2 Eo% 1.7 % N 0.0-6.6 Bas% 0.1 % N 0.0-1.1 Neut# 5.45 K/uL N 1.8-7.0 Lymph # 2.37 K/uL N 1.0-4.0 Weston # 0.62 K/uL N 0.3-0.9 Eos # 0.15 K/uL N 0.0-0.5 Baso # 0.01 K/uL N 0.0-0.1 Alp SerPl-cCnc 09/28/2016 N2N/CCD Import Alp SerPl-cCnc 103 45-117 Alt SerPl-cCnc 09/28/2016 N2N/CCD Import Alt SerPl-cCnc 76 12-78 Albumin SerPl-mCnc 09/28/2016 N2N/CCD Import Albumin SerPl-mCnc 3.3 Low 3.4-5.0 Albumin/Glob SerPl 09/28/2016 N2N/CCD Import Albumin/Glob SerPl 0.9 Anion Gap 09/28/2016 N2N/CCD Import Anion Gap 8 8-16 SerPl-sCnc SerPl-sCnc Aspartate 09/28/2016 N2N/CCD Import Aspartate 63 High 15-37 aminotransferase aminotransferase [Enzymatic [Enzymatic activity/vol activity/volume] in Serum or Plasma BUN SerPl-mCnc 09/28/2016 N2N/CCD Import BUN SerPl-mCnc 10 7-18 BUN/Creat SerPl 09/28/2016 N2N/CCD Import BUN/Creat SerPl 11.1 Basophils 09/28/2016 N2N/CCD Import Basophils 0.01 0.0-0.1 [#/volume] in [#/volume] in Blood by Automated Blood by Automated count count Basophils/leuk NFr 09/28/2016 N2N/CCD Import Basophils/leuk NFr 0.1 0.0- 1.1 Bld Auto Bld Auto Bilirub SerPl-mCnc 09/28/2016 N2N/CCD Import Bilirub SerPl-mCnc 0.2 0.2- 1.0 Co2 SerPl-sCnc 09/28/2016 N2N/CCD Import Co2 SerPl-sCnc 24 21-32 Calcium SerPl-mCnc 09/28/2016 N2N/CCD Import Calcium SerPl-mCnc 7.9 Low 8.5-10.1 Monocytes # Bld 09/28/2016 N2N/CCD Import Monocytes # Bld 0.62 0.3-0.9 Auto Auto MCV RBC Auto 09/28/2016 N2N/CCD Import MCV RBC Auto 85.1 80.9-99.0 MCHC RBC Auto-mCnc 09/28/2016 N2N/CCD Import MCHC RBC Auto-mCnc 33.8 30.8-34.3 MCH RBC Qn Auto 09/28/2016 N2N/CCD Import MCH RBC Qn Auto 28.8 25.9- 32.7 Lymphocytes/leuk 09/28/2016 N2N/CCD Import Lymphocytes/leuk 27.6 20.0- 42.0 NFr Bld Auto NFr Bld Auto Lymphocytes 09/28/2016 N2N/CCD Import Lymphocytes 2.37 1.0-4.0 [#/volume] in [#/volume] in Blood by Automated Blood by Automated count count Hgb Bld-mCnc 09/28/2016 N2N/CCD Import Hgb Bld-mCnc 11.6 11.6-15.8 Hct VFr Bld Auto 09/28/2016 N2N/CCD Import Hct VFr Bld Auto 34.3 Low 36.0 -46.1 Glucose 09/28/2016 N2N/CCD Import Glucose 92 74-106 [Mass/volume] in [Mass/volume] in Serum or Plasma Serum or Plasma Globulin Ser 09/28/2016 N2N/CCD Import Globulin Ser 3.5 1.9-4.3 Calc-mCnc Calc-mCnc Eosinophil/leuk 09/28/2016 N2N/CCD Import Eosinophil/leuk 1.7 0.0-6.6 NFr Bld Auto NFr Bld Auto Eosinophil # Bld 09/28/2016 N2N/CCD Import Eosinophil # Bld 0.15 0.0- 0.5 Auto Auto Creat SerPl-mCnc 09/28/2016 N2N/CCD Import Creat SerPl-mCnc 0.9 0.6-1.3 Chloride 09/28/2016 N2N/CCD Import Chloride 109 High 98-107 SerPl-sCnc SerPl-sCnc Laboratory test 09/27/2016 [facility] Urine HCG NEGATIVE Negative 33, finding [address] (Qualitative) 34 [place] [address] [phone] Urine 07/31/2016 N2N/CCD Import Urine 1.2 0.0-2.0 porphobilinogen porphobilinogen measurement measurement (moles/volume) (moles/volume) 24 hour urine 07/31/2016 N2N/CCD Import 24 hour urine 0.7 0.0-1.5 porphobilinogen porphobilinogen measurement measurement (mass/ti (mass/time) Porphobilinogen,QN 07/31/2016 [facility] Porphobilinogen,QN 1.2 mg/L 0.0-2.0 35 ,24HR Urine [address] ,[place] [address] [phone] Porphobilinogen, 24HR (U) 0.7 mg/24hr 0.0-1.5 36 Urine uroporphyrin 07/26/2016 N2N/CCD Import Urine uroporphyrin 17 0-20 measurement measurement (mass/volume) (mass/volume) Urine 07/26/2016 N2N/CCD Import Urine 3 High 0-2 heptacarboxylporphyrin heptacarboxylporphyrin measurement (mass/vol measurement (mass/volume) Urine delta 07/26/2016 N2N/CCD Import Urine delta 3.8 0.0-5 aminolevulinate aminolevulinate .4 measurement (mass/volu measurement (mass/volume) Urine coproporphyrin 3 07/26/2016 N2N/CCD Import Urine coproporphyrin 3 17 0-49 measurement measurement (mass/volume) (mass/volume) Urine coproporphyrin 1 07/26/2016 N2N/CCD Import Urine coproporphyrin 1 13 0-15 measurement measurement (mass/volume) (mass/volume) Serum or plasma 07/26/2016 N2N/CCD Import Serum or plasma 76 . complement C1 esterase complement C1 esterase inhibitor.f inhibitor.functional/co mplementC1 esterase inhibitor.total Lipase SerPl-cCnc 07/26/2016 N2N/CCD Import Lipase SerPl-cCnc 139 73-39 3 Laboratory test finding 07/26/2016 N2N/CCD Import Complement C4 Function See 37 Note Laboratory test finding 07/26/2016 [facility] Ala,Delta,Random Urine 3.8 0.0- [address] mg/L .4 [place] [address] [phone] C1 Esterase Inhibitor 24 mg/dL 21-39 C1 Esterase Inhibitor Function 76 %meanno . 39 Porphyrins,QN,Random 07/26/2016 [facility] Octacarboxyporphyrin 17 0-[address] ug/[place] [address] [phone] Heptacarboxyporphyrin 3 ug/L High 0-2 Hexacarboxyporphyrin <1 ug/L 0-1 Pentacarboxyporphyrin <1 ug/L 0-2 Coproporphyrin I 13 ug/L 0-15 Coproporphyrin III 17 ug/L 0-49 Laboratory test finding 07/26/2016 [facility] Amylase 41 U/L N 25-115 [address] [place] [address] [phone] Lipase 139 U/L N 73-393 Porphobilinogen,QN,Random Urin 0.8 mg/L 0.0-2.0 40 Comprehensive Metabolic 07/26/2016 [facility] Glucose 123 mg/dL High 74-106 Panel [address] [place] [address] [phone] BUN 13 mg/dL N 7-18 Creatinine 0.9 mg/dL N 0.6-1.3 Glom Filtration Rate, Estimate >60 mL/min >60 If >60 mL/min >60 41 BUN/Creat 14.4 ratio Sodium 137 mmol/L N 136-145 Potassium 3.6 mmol/L N 3.5-5.1 Chloride 107 mmol/L N 98-107 Carbon Dioxide 23 mmol/L N 21-32 Anion Gap 7 mEq/L Low 8-16 Calcium 8.4 mg/dL Low 8.5-10.1 Total Protein 7.8 g/dL N 6.4-8.2 Albumin 3.9 g/dL N 3.4-5.0 Globulin 3.9 g/dL N 1.9-4.3 Alb/Glob 1.0 ratio Bilirubin,Total 0.4 mg/dL N 0.2-1.0 Sgot/Ast 12 U/L Low 15-37 42 SGPT/Alt 22 U/L N 12-78 Alkaline Phosphatase 87 U/L N 45-117 Laboratory test 07/26/2016 [facility] C4 Function (SEE NOTE) 43 finding [address] [place] [address] [phone] Laboratory test 03/26/2016 [facility] HCG,Serum NEGATIVE N (Negat 44 finding [address] (Qualitative) kalyan) [place] [address] [phone] TSH Reflex FT4 02/21/2016 [facility] Thyroid Stim 2.19 uIU/mL N 0.30-4 45 And/Or FT3 [address] Hormone .20 [place], [place] [id number] [phone] Reflex add FT3? Y Reflex add FT4? Y Laboratory test 02/21/2016 N2N/CCD Import Thyroid 2.19 0.30-4.20 finding Stimulating Hormone (TSH) Quantiferon Client 10/28/2015 [facility] QuantiFERON TB Negative Negative [address] Gold [place], [place] [id number] [phone] QuantiFERON Criteria See Note 47 QuantiFERON TB Ag Value 0.04 IU/mL . QuantiFERON Nil Value 0.04 IU/mL . QuantiFERON Mitogen Value > 10.00 IU/mL . QFT TB Ag minus Nil Value 0 IU/mL . QuantiFERON TB Gold Interpret See Note 48 Type And Screen 06/23/2015 [facility] Patient Blood Type B POS [address] [place] [address] [phone] Antibody Screen Negative Negative CBC 06/23/2015 [facility] White Blood Count 11.3 K/uL High 3.1-10.7 [address] [place], [place] [address] [phone] Red Blood Count 3.73 M/uL Low 3.90-5.40 Hemoglobin 10.3 gm/dL Low 11.6-15.8 Hematocrit 31.1 % Low 36.0-46.1 Mean Cell Volume 83.4 fl 80.9-99.0 Mean Corpuscular HGB 27.6 pg 25.9-32.7 Mean Corpuscular HGB Conc 33.1 g/dL 30.8-34.3 Platelet Count 228 K/uL 155-360 Red Cell Distri Width %CV 13.3 % 11.7-14.4 Mean Platelet Volume 11.8 fL 8.9-12.4 Laboratory test 06/23/2015 [facility] Treponema Nonreactive [address] [place] [address] Dunn [phone] Hepatitis B Surface Antigen Nonreactive Nonreactive 50 Urinalysis With 06/20/2015 [facility] Urine Color YELLOW Yellow Microscopic [address] [place], [place] [id number] [phone] Urine Clarity CLEAR Clear Urine Glucose - Dipstick NEGATIVE mg/dL Negative Urine Bilirubin - Dipstick NEGATIVE Negative Urine Ketone NEGATIVE mg/dL Negative Urine Specific Hume 1.025 1.010-1.030 Urine Blood NEGATIVE Negative Urine PH 6.5 6.5-7.5 Urine Protein - Dipstick TRACE mg/dL Negative Urine Urobilinogen - Dipstick 0.2 E.U./dL 0.2-1.0 Urine Nitrite - Dipstick NEGATIVE Negative Urine Leuk Esterase TRACE High Negative Urine RBC 2-5 rbc/hpf 0-2 Urine WBC 5-10 wbc/hpf 0-7 Urine Epithelial Cells MODERATE NONESEEN/lpf 51 Urine Bacteria FEW NONESEEN Urine Mucus MODERATE NONESEEN Urine Screen 06/20/2015 [facility] Ua RFX Micro See Note [address] + Culture II [place], [place] [id number] [phone] Urine Culture 06/20/2015 [facility] Urine See Note [address] [place] [address] [phone] Laboratory test 06/02/2015 [facility] Vaginal See Note [address] Strep Screen [place], [place] [id number] [phone] Chlamydia/GC 06/02/2015 [facility] Chlamydia Indeterminant Negative Amplification [address] Trachomatis, [place] [address] Tabitha [phone] Neisseria Gonorrhoeae, Tabitha Indeterminant Negative Please note: See Note 55 Urine Screen 05/24/2015 [facility] Urine Color YELLOW Yellow [address] [place] [address] [phone] Urine Clarity CLEAR Clear Urine Glucose - Dipstick NEGATIVE mg/dL Negative Urine Bilirubin - Dipstick NEGATIVE Negative Urine Ketone TRACE mg/dL High Negative Urine Specific Hume 1.020 1.010-1.030 Urine Blood NEGATIVE Negative Urine PH 6.5 6.5-7.5 Urine Protein - Dipstick TRACE mg/dL Negative Urine Urobilinogen - Dipstick 1.0 E.U./dL 0.2-1.0 Urine Nitrite - Dipstick NEGATIVE Negative Urine Leuk Esterase NEGATIVE Negative Urine Screen 04/24/2015 [facility] Urine Color YELLOW Yellow [address] [place] [address] [phone] Urine Clarity CLEAR Clear Urine Glucose - Dipstick NEGATIVE mg/dL Negative Urine Bilirubin - Dipstick NEGATIVE Negative Urine Ketone NEGATIVE mg/dL Negative Urine Specific Hume 1.025 1.010-1.030 Urine Blood NEGATIVE Negative Urine PH 6.0 Low 6.5-7.5 Urine Protein - Dipstick NEGATIVE mg/dL Negative Urine Urobilinogen - Dipstick 0.2 E.U./dL 0.2-1.0 Urine Nitrite - Dipstick NEGATIVE Negative Urine Leuk Esterase NEGATIVE Negative Genital Culture W/ Gram 03/23/2015 [facility] Gram Stain See Note 56 Stain [address] [place] [address] [phone] Genital Culture See Note 57 Laboratory test 12/15/2013 N2N/CCD Import Throat Strep See Note 58 finding Screen Laboratory test 11/27/2013 N2N/CCD Import Urine Screen See Note 59 finding Urinalysis With 11/27/2013 N2N/CCD Import Urine Amorph Small Negative Microscopic Sediment Urine Bacteria Few None Seen Urine Bilirubin - Dipstick Negative Negative Urine Blood Negative Negative Urine Clarity Clear Clear Urine Color Yellow Yellow Urine Epithelial Cells Many None Seen /lpf 60 Urine Glucose - Dipstick Negative mg/dL Negative Urine Ketone Negative mg/dL Negative Urine Leuk Esterase Small High Negative Urine Nitrite - Dipstick Negative Negative Urine PH 6.0 Low 6.5-7.5 Urine Protein - Dipstick Negative mg/dL Negative Urine RBC 0-2 rbc/hpf 0-7 Urine Specific Hume >=1.030 1.010-1.030 Urine Urobilinogen - Dipstick 0.2 E.U./dL 0.2-1.0 Urine WBC 2-5 wbc/hpf 0-7 Laboratory test finding 11/27/2013 N2N/CCD Import Bas% 0.1 % 0.0-1.1 Baso # 0.01 K/uL 0.0-0.1 Eo% 1.0 % 0.0-6.6 Eos # 0.08 K/uL 0.0-0.5 HCG Serum, Qualitative Negative Hematocrit 38.4 % 36.0-46.1 Hemoglobin 13.1 gm/dL 11.6-15.8 Lymph # 1.57 K/uL 0.8-3.4 Lymph % 20.1 % 17.0-46.1 Mean Cell Volume 84.6 fl 80.9-99.0 Mean Corpuscular HGB 28.9 pg 25.9-32.7 Mean Corpuscular HGB Conc 34.1 g/dL 30.8-34.3 Mean Platelet Volume 12.0 fL 8.9-12.4 Weston # 0.48 K/uL 0.3-0.9 Weston % 6.1 % 4.3-13.2 Neut# 5.67 K/uL 1.0-7.0 Neut% 72.7 % 40.4-72.8 Platelet Count 202 K/uL 155-360 Red Blood Count 4.54 M/uL 3.90-5.40 Red Cell Distri Width %CV 12.7 % 11.7-14.4 Red Cell Distri Width SD 38.7 fl 3-47 White Blood Count 7.8 K/uL 3.1-10.7 Comprehensive Metabolic Panel 11/27/2013 N2N/CCD Import Alb/Glob 1.1 ratio Albumin 4.0 g/dL 3.5-5.0 Alkaline Phosphatase 63 U/L 50-136 Anion Gap 10 mEq/L 8-16 BUN 12 mg/dL 5-23 BUN/Creat 15.0 ratio Bilirubin,Total 0.7 mg/dL 0.2-1.2 Calcium 8.8 mg/dL 8.5-10.1 Carbon Dioxide 26 mEq/L 18-29 Chloride 106 mmol/L 98-107 Creatinine 0.8 mg/dL 0.5-1.4 Globulin 3.7 g/dL 1.9-4.3 Glom Filtration Rate, Estimate >60 mL/min >60 Glucose 80 mg/dL 76-115 If >60 mL/min >60 61 Potassium 3.7 mmol/L 3.5-5.1 SGPT/Alt 17 U/L Low 30-65 Sgot/Ast 11 U/L Low 16-40 Sodium 138 mmol/L 136-145 Total Protein 7.7 g/dL 6.3-8.0 Laboratory test 08/05/2013 N2N/CCD Import Thyroid Stim 3.43 uIU/mL 0.49- 4.67 finding Hormone CBC 08/05/2013 N2N/CCD Import Hematocrit 37.3 % 36.0-46.1 Hemoglobin 12.6 gm/dL 11.6-15.8 Mean Cell Volume 83.4 fl 80.9-99.0 Mean Corpuscular HGB 28.2 pg 25.9-32.7 Mean Corpuscular HGB Conc 33.8 g/dL 30.8-34.3 Mean Platelet Volume 11.9 fL 8.9-12.4 Platelet Count 242 K/uL 155-360 Red Blood Count 4.47 M/uL 3.90-5.40 Red Cell Distri Width %CV 13.7 % 11.7-14.4 White Blood Count 6.4 K/uL 3.1-10.7 Laboratory test 07/30/2013 N2N/CCD Import Urine Culture See Note 62 finding Laboratory test 04/14/2013 N2N/CCD Import ThinPrep Pap: See Note 63 finding Cervix/Endocx Laboratory test 02/22/2013 N2N/CCD Import Rapid Plasma Nonreactive 64 finding Reagin Nonreactive Type And Screen See Note 65 CBC 02/22/2013 N2N/CCD Import Hematocrit 30.7 % Low 36.0-46.1 Hemoglobin 10.2 gm/dL Low 11.6-15.8 Mean Cell Volume 85.8 fl 80.9-99.0 Mean Corpuscular HGB 28.5 pg 25.9-32.7 Mean Corpuscular HGB Conc 33.2 g/dL 30.8-34.3 Mean Platelet Volume 11.6 fL 8.9-12.4 Platelet Count 267 K/uL 155-360 Red Blood Count 3.58 M/uL Low 3.90-5.40 Red Cell Distri Width %CV 13.0 % 11.7-14.4 White Blood Count 13.3 K/uL High 3.1-10.7 Type And Screen 02/22/2013 N2N/CCD Import Antibody Screen Negative Patient Blood Type B Pos Chlamydia/GC Tabitha 02/08/2013 N2N/CCD Import Chlamydia Negative Negative Trachomatis, Tabitha Neisseria Gonorrhoeae, Tabitha Negative Negative Please note: See Note 66 Laboratory test 01/27/2013 N2N/CCD Import Vaginal Strep See Note 67 finding Screen Chlamydia/GC Tabitha 01/27/2013 N2N/CCD Import Chlamydia Positive High Negative Trachomatis, Tabitha Neisseria Gonorrhoeae, Tabitha Negative Negative Please note: See Note 68 Laboratory test 12/08/2012 N2N/CCD Import 1 HR Glucose,Post 121 mg/dL - 138 69 finding Glucola 1 Hour Urine Glucose Negative % Negative 1 Hour Urine Ketone Negative Negative Hemoglobin/Hematocrit 12/08/2012 N2N/NCLC Import Hematocrit 30.1 % Low 36.0-46.1 Hemoglobin 10.1 gm/dL Low 11.6-15.8 Urinalysis With 10/06/2012 N2N/NCLC Import Urine Bilirubin - Negative Negative Microscopic Dipstick Urine Blood Negative Negative Urine Calcium Oxalate Crystals Few None Seen Urine Clarity SL Cloudy Clear Urine Color Yellow Yellow Urine Epithelial Cells Moderate None Seen /lpf 70 Urine Glucose - Dipstick Negative mg/dL Negative Urine Ketone Negative mg/dL Negative Urine Leuk Esterase Large High Negative Urine Mucus Small None Seen Urine Nitrite - Dipstick Negative Negative Urine PH 6.0 Low 6.5-7.5 Urine Protein - Dipstick Trace mg/dL Negative Urine RBC 0-2 rbc/hpf 0-7 Urine Specific Hume 1.020 1.010-1.030 Urine Urobilinogen - Dipstick 0.2 E.U./dL 0.2-1.0 Urine WBC 10-20 wbc/hpf High 0-7 Liver Function Tests 10/06/2012 Digital Folio/NCLC Import Alb/Glob 0.9 ratio Albumin 3.2 g/dL Low 3.5-5.0 Alkaline Phosphatase 96 U/L 50-136 Bilirubin,Direct < 0.1 mg/dL Low 0.1-0.4 Bilirubin,Indirect 0.1 mg/dL 0.0-0.9 Bilirubin,Total 0.2 mg/dL 0.2-1.2 Globulin 3.5 g/dL 1.9-4.3 SGPT/Alt 22 U/L Low 30-65 Sgot/Ast 15 U/L Low 16-40 Total Protein 6.7 g/dL 6.3-8.0 Basic Metabolic Panel 10/06/2012 [email or web address] Import Anion Gap 16 mEq/L 8-16 BUN 7 mg/dL 5-23 BUN/Creat 10.0 ratio Calcium 8.5 mg/dL 8.5-10.1 Carbon Dioxide 23 mEq/L 18-29 Chloride 107 mmol/L 98-107 Creatinine 0.7 mg/dL 0.5-1.4 Glom Filtration Rate, Estimate >60 mL/min >60 Glucose 90 mg/dL 76-115 If >60 mL/min >60 71 Potassium 3.7 mmol/L 3.5-5.1 Sodium 142 mmol/L 136-145 Laboratory test finding 10/06/2012 N2N/CCD Import Bas% 0.1 % 0.0-1.1 Baso # 0.01 K/uL 0.0-0.1 Culture If Indicated Comment See Note 72 Eo% 1.3 % 0.0-6.6 Eos # 0.16 K/uL 0.0-0.5 Hematocrit 30.7 % Low 36.0-46.1 Hemoglobin 10.7 gm/dL Low 11.6-15.8 Lipase 143 U/L 28-380 Lymph # 1.99 K/uL 0.8-3.4 Lymph % 16.3 % Low 17.0-46.1 Mean Cell Volume 88.2 fl 80.9-99.0 Mean Corpuscular HGB 30.7 pg 25.9-32.7 Mean Corpuscular HGB Conc 34.9 g/dL High 30.8-34.3 Mean Platelet Volume 11.5 fL 8.9-12.4 Weston # 0.72 K/uL 0.3-0.9 Weston % 5.9 % 4.3-13.2 Neut# 9.32 K/uL High 1.0-7.0 Neut% 76.4 % High 40.4-72.8 Platelet Count 206 K/uL 155-360 Red Blood Count 3.48 M/uL Low 3.90-5.40 Red Cell Distri Width %CV 13.0 % 11.7-14.4 Red Cell Distri Width SD 40.4 fl 3-47 Urine Culture See Note 73 Urine Screen See Note 74 White Blood Count 12.2 K/uL High 3.1-10.7 Laboratory test finding 09/29/2012 N2N/CCD Import Urine Culture See Note 75 Laboratory test finding 07/29/2012 N2N/CCD Import Antibody Detection See Note 76 Bas% 0.1 % 0.0-1.1 Baso # 0.01 K/uL 0.0-0.1 Eo% 1.3 % 0.0-6.6 Eos # 0.09 K/uL 0.0-0.5 Hematocrit 34.1 % Low 36.0-46.1 Hemoglobin 11.6 gm/dL 11.6-15.8 Hepatitis B Surface Antigen Nonreactive Nonreactive 77 Lead,Blood (Adult) 1 g/dL 0-19 78 Lymph # 1.31 K/uL 0.8-3.4 Lymph % 18.2 % 17.0-46.1 Mean Cell Volume 86.1 fl 80.9-99.0 Mean Corpuscular HGB 29.3 pg 25.9-32.7 Mean Corpuscular HGB Conc 34.0 g/dL 30.8-34.3 Mean Platelet Volume 12.8 fL High 8.9-12.4 Weston # 0.61 K/uL 0.3-0.9 Weston % 8.5 % 4.3-13.2 Neut# 5.18 K/uL 1.0-7.0 Neut% 71.9 % 40.4-72.8 Platelet Count 207 K/uL 155-360 Rapid Plasma Reagin Nonreactive Nonreactive 79 Red Blood Count 3.96 M/uL 3.90-5.40 Red Cell Distri Width %CV 13.0 % 11.7-14.4 Red Cell Distri Width SD 40.3 fl 3-47 Rubella IgG Antibody Reactive Reactive Varicella-Zoster Virus IgG Ab 1.32 Immune>1.09i 80 White Blood Count 7.2 K/uL 3.1-10.7 Type And 07/29/2012 N2N/CCD Import Antibody Screen Negative Negative Screen Patient Blood Type B Pos Laboratory test finding 07/28/2012 N2N/CCD Import HCG, Quant 56192.0 mIU/ mL 81 Urine Screen See Note 82 Urinalysis With 07/28/2012 N2N/CCD Import Urine Amorph Very Few Negative Microscopic Sediment Urine Bacteria Very Few None Seen Urine Bilirubin - Dipstick Negative Negative Urine Blood Negative Negative Urine Clarity Clear Clear Urine Color Yellow Yellow Urine Epithelial Cells Moderate None Seen /lpf 83 Urine Glucose - Dipstick Negative mg/dL Negative Urine Ketone Negative mg/dL Negative Urine Leuk Esterase Small High Negative Urine Nitrite - Dipstick Negative Negative Urine PH 6.0 Low 6.5-7.5 Urine Protein - Dipstick Negative mg/dL Negative Urine RBC 0-2 rbc/hpf 0-7 Urine Specific Hume >=1.030 1.010-1.030 Urine Urobilinogen - Dipstick 1.0 E.U./dL 0.2-1.0 Urine WBC 0-2 wbc/hpf 0-7 Herpes Simplex PCR 07/07/2012 N2N/CCD Import Herpes Result See Comment 84 Herpes Source Oral Mucosa Laboratory test 06/02/2012 N2N/CCD Import HPV High Risk See Note 85 finding Dna Probe N. Gono + C. 06/02/2012 N2N/CCD Import Dna Probe For See Note 86 Trach. Chlamydia Trac. Dna Probe For N. Gonorrhoeae See Note 87 Genital Culture W/ Gram 06/02/2012 N2N/CCD Import Genital Culture See Note 88 Stain Gram Stain See Note 89 Basic Metabolic Panel 04/07/2012 N2N/CCD Import Anion Gap 9.0 mmol/L 2- 11 BUN/Creatinine Ratio 13.8 8-20 Blood Urea Nitrogen 11 mg/dL 6-24 Calcium 9.5 mg/dL 8.1-9.9 Chloride 103 mmol/L 101-111 Co2 Carbon Dioxide 26.0 mmol/L 22-32 Creatinine 0.80 mg/dL 0.50-1.40 Egfr 114.3 >60 90 Egfr Non- 88.9 >60 Glucose 77 mg/dL 70-100 Potassium 4.2 mmol/L 3.5-5.0 Sodium 138 mmol/L 133-145 Laboratory test finding 04/07/2012 N2N/CCD Import Free T4 0.90 ng/mL 0.61-1.24 Magnesium 2.3 mg/dL 1.7-2.6 TSH (Thyroid Stimulating Horm) 1.91 miu/mL 0.34-5.60 Laboratory test 11/12/2011 N2N/CCD Import HBSAb Interpretation Reactive High finding Nonreactive Hepatitis B Surface Antibody 303.6 mIU/mL <1.0 91 Mumps Antibodies, Igg 1.60 index High 0.00-0.90 92 Rubeola Antibodies, Igg 3.43 index High 0.00-0.90 93 Laboratory test 11/06/2011 N2N/CCD Import ThinPrep Pap: See Note 94 finding Cervix/Endocx Stool Cult & 10/10/2011 N2N/CCD Import M 95 Sensitivity ----- <See Note> Comp Metabolic 10/10/2011 N2N/CCD Import Albumin 4.0 GM/DL 3.6-5. Panel 4 Albumin/Globulin Ratio 1.3 1-3 Alkaline Phosphatase 85 U/L 30-110 Alt (SGPT) 33 U/L 14-54 Anion Gap 7.0 mmol/L 2-11 96 Ast (Sgot) 28 U/L 12-42 BUN 10 mg/dL 6-24 BUN/Creatinine Ratio 11.1 8-20 Bilirubin Total 1.1 mg/dL 0.4-1.5 97 Calcium 9.1 mg/dL 8.1-9.9 Chloride 104 mmol/L 101-111 Co2 (Carbon Dioxide) 22.0 mmol/L 22-32 Creatinine 0.9 mg/dL 0.50-1.40 Globulin 3.1 GM/DL 2-4 Glucose 93 mg/dL 70-100 One Over Creatinine 1.11 Potassium 4.0 mmol/L 3.5-5.0 Sodium 133 mmol/L Low 135-145 Total Protein 7.1 GM/DL 6.2-8.1 eGFR 100.7 > 60 98 eGFR Non- 78.3 > 60 CBC Auto Diff 10/10/2011 N2N/CCD Import Abs Basophils 0 0-0.2 Abs Eosinophils 0 0-0.6 Abs Lymphs 1.3 1.0-4.8 Abs Mononuclear 0.4 0-0.8 Absolute Neutrophil Count 3.7 1.5-7.7 Basophil % 0.3 % 0-2 Eosinophil % 0.6 % 0-6 Gran % 67.2 % 38-83 Hematocrit 36 % 35-47 Hemoglobin 12.2 g/dL 12.0-16.0 Lymph % 24.4 % Low 25-47 Mean Corpuscular HGB Cone 34 g/dL 32-36 Mean Corpuscular Hemoglob 27 pg 27-31 Mean Corpuscular Volume 80 um3 79-97 Mean Platelet Volume 10.9 um3 High 7.4-10.4 Mononuclear % 7.5 % 1-9 Platelet Count 254 CUMM 150-450 Red Cell Count 4.51 CUMM 4.2-5.4 Redcell Distribution WDTH 15 % 10.5-15 White Blood Count 5.4 CUMM 4.8-10.8 CBC 08/03/2011 N2N/CCD Import Hematocrit 29.3 % Low 36.0-46.1 Hemoglobin 9.4 gm/dL Low 11.6-15.8 Mean Cell Volume 85.4 fl 80.9-99.0 Mean Corpuscular HGB 27.4 pg 25.9-32.7 Mean Corpuscular HGB Conc 32.1 g/dL 30.8-34.3 Mean Platelet Volume 11.7 fL 8.9-12.4 Platelet Count 207 K/uL 155-360 Red Blood Count 3.43 M/uL Low 3.90-5.40 Red Cell Distri Width %CV 13.3 % 11.7-14.4 White Blood Count 9.1 K/uL 3.1-10.7 Type And Screen 08/03/2011 Digital Folio/NCLC Import Antibody Screen Negative Patient Blood Type B Pos Laboratory test 08/03/2011 [facility] Import Rapid Plasma Nonreactive 99 finding Reagin Nonreactive Urine Screen 07/05/2011 [facility] Import Urine Bilirubin Negative Negative - Dipstick Urine Blood Negative Negative Urine Clarity Clear Clear Urine Color Yellow Yellow Urine Glucose - Dipstick Negative mg/dL Negative Urine Ketone Trace mg/dL High Negative Urine Leuk Esterase Negative Negative Urine Nitrite - Dipstick Negative Negative Urine PH 6.5 6.5-7.5 Urine Protein - Dipstick Negative mg/dL Negative Urine Specific Hume 1.025 1.010-1.030 Urine Urobilinogen - Dipstick 0.2 E.U./dL 0.2-1.0 Laboratory test 07/05/2011 [facility] Import Vaginal Strep See Note 100 finding Screen Liver Function Tests 05/30/2011 [facility] Import Alb/Glob 0.8 ratio Albumin 3.2 g/dL Low 3.5-5.0 Alkaline Phosphatase 87 U/L 50-136 Bilirubin,Direct < 0.1 mg/dL Low 0.1-0.4 Bilirubin,Indirect 0.2 mg/dL 0.0-0.9 Bilirubin,Total 0.3 mg/dL 0.2-1.2 Globulin 4.1 g/dL 1.9-4.3 SGPT/Alt 24 U/L Low 30-65 Sgot/Ast 13 U/L Low 16-40 Total Protein 7.3 g/dL 6.3-8.0 Urine Screen 05/30/2011 [facility] Import Urine Bilirubin - Negative Negative Dipstick Urine Blood Negative Negative Urine Clarity Clear Clear Urine Color Yellow Yellow Urine Glucose - Dipstick Negative mg/dL Negative Urine Ketone Negative mg/dL Negative Urine Leuk Esterase Negative Negative Urine Nitrite - Dipstick Negative Negative Urine PH 6.0 Low 6.5-7.5 Urine Protein - Dipstick Negative mg/dL Negative Urine Specific Hume >=1.030 1.010-1.030 Urine Urobilinogen - Dipstick 0.2 E.U./dL 0.2-1.0 Differential-WBC Confirm 05/30/2011 N2N/CCD Import Band% 6 % 0-8 Lymph% 9 % Low 17-56 Monocyte% 6 % 0-10 Neutrophils% 79 % High 33-73 Platelet Estimate Normal RBC Morphology Normal Total Cells Counted 100 #CELLS CBC W/Automated Diff 05/30/2011 N2N/CCD Import Hematocrit 33.6 % Low 36.0 -46.1 Hemoglobin 11.3 gm/dL Low 11.6-15.8 Mean Cell Volume 88.4 fl 80.9-99.0 Mean Corpuscular HGB 29.7 pg 25.9-32.7 Mean Corpuscular HGB Conc 33.6 g/dL 30.8-34.3 Mean Platelet Volume 11.5 fL 8.9-12.4 Platelet Count 216 K/uL 155-360 Red Blood Count 3.80 M/uL Low 3.90-5.40 Red Cell Distri Width %CV 12.5 % 11.7-14.4 Red Cell Distri Width SD 39.1 fl 3-47 White Blood Count 13.7 K/uL High 3.1-10.7 Basic Metabolic Panel 05/30/2011 N2N/CCD Import Anion Gap 13 mEq/L 8-16 BUN 6 mg/dL 5-23 BUN/Creat 8.5 ratio Calcium 8.6 mg/dL 8.5-10.1 Carbon Dioxide 21 mEq/L 18-29 Chloride 107 mmol/L 98-107 Creatinine 0.7 mg/dL 0.5-1.4 Glom Filtration Rate, Estimate >60 mL/min >60 Glucose 87 mg/dL 76-115 If >60 mL/min >60 101 Potassium 4.2 mmol/L 3.5-5.1 Sodium 137 mmol/L 136-145 Laboratory test finding 05/30/2011 N2N/CCD Import CK 31 U/L 26-190 Lipase 125 U/L 28-380 Hemoglobin/Hematocrit 05/21/2011 N2N/CCD Import Hematocrit 31.0 % Low 36.0-46.1 Hemoglobin 10.5 gm/dL Low 11.6-15.8 Laboratory test 05/21/2011 N2N/CCD Import 1 HR Glucose,Post 127 mg/dL - 138 102 finding Glucola 1 Hour Urine Glucose See Note % Negative 103 1 Hour Urine Ketone See Note Negative 104 Urine Screen 05/11/2011 N2N/CCD Import Urine Bilirubin - Negative Negative Dipstick Urine Blood Negative Negative Urine Clarity Clear Clear Urine Color Yellow Yellow Urine Glucose - Dipstick Negative mg/dL Negative Urine Ketone Negative mg/dL Negative Urine Leuk Esterase Negative Negative Urine Nitrite - Dipstick Negative Negative Urine PH 6.5 6.5-7.5 Urine Protein - Dipstick Negative mg/dL Negative Urine Specific Hume 1.025 1.010-1.030 Urine Urobilinogen - Dipstick 0.2 E.U./dL 0.2-1.0 Throat-Beta 04/03/2011 N2N/CCD Import M 105 Strept <See Note> Laboratory test 12/12/2010 N2N/NCLC Import BHCG 2043.0 MIU/ML High 0-5 106 finding Quantitative Laboratory test 10/10/2010 [facility] Gallbladder See Note [address] [place] [address] [phone] Laboratory test 10/09/2010 [facility] HCG Serum, NEGATIVE [address] [place] [address] [phone] CBC 10/09/2010 [facility] White Blood 6.5 K/uL 3.[address] Count -10 [place] [address] .7 [phone] Red Blood Count 4.58 M/uL 3.90-5.40 Hemoglobin 12.8 gm/dL 11.6-15.8 Hematocrit 38.0 % 36.0-46.1 Mean Cell Volume 83.0 fl 80.9-99.0 Mean Corpuscular HGB 27.9 pg 25.9-32.7 Mean Corpuscular HGB Conc 33.7 g/dL 30.8-34.3 Platelet Count 295 K/uL 155-360 Red Cell Distri Width %CV 13.0 % 11.7-14.4 Mean Platelet Volume 11.9 fL 8.9-12.4 Laboratory test 10/09/2010 [facility] Urine Screen See Note [address] [place] [address] [phone] Urinalysis With 10/09/2010 [facility] Urine Color YELLOW Yellow Microscopic [address] [place] [address] [phone] Urine Clarity CLEAR Clear Urine Glucose - Dipstick NEGATIVE mg/dL Negative Urine Bilirubin - Dipstick NEGATIVE Negative Urine Ketone NEGATIVE mg/dL Negative Urine Specific Hume >=1.030 1.010-1.030 Urine Blood NEGATIVE Negative Urine PH 6.0 Low 6.5-7.5 Urine Protein - Dipstick NEGATIVE mg/dL Negative Urine Urobilinogen - Dipstick 0.2 E.U./dL 0.2-1.0 Urine Nitrite - Dipstick NEGATIVE Negative Urine Leuk Esterase TRACE High Negative Urine RBC 0-2 rbc/hpf 0-7 Urine WBC 2-5 wbc/hpf 0-7 Urine Epithelial Cells MODERATE NONESEEN 110 Urine Mucus SMALL NONESEEN Urine Amorph Sediment SMALL Negative Xray 08/28/2010 [facility] - Radiology Ultrasound, Gallbladder gb stones present [address] [place] [address] [phone] 1 [id number] 2 SEE RESULT BELOW Name: TIRSO JONES : [address]: Mau Soto MD Acct: [id number] Unit: [id number] AGE: 26 Location: [facility] Re12/22/17 SEX: F Status: DEP ER SPEC: [id number] JEFF: 12/22/17-[address]: Simona Harvey Isabell YAHIR REQ: [id number] RECD: 12/23/17 STATUS: YELENA HAMEED DR: Mau Guzmán HR MANAGER _ SOURCE: URINE SPDESC: ORDERED: Urine Culture COMMENTS: [id number] Procedure Result Reported Site Urine Culture Final 12/24/17- 0857 ML No Growth (<1,000 CFU/mL) * ML - Main Lab . END OF REPORT DEPARTMENT OF PATHOLOGY, [address] [place] [address] Morgan Aguilar M.D. Director [facility] # [id number] 3 R63.5,E28.2,Z13.220 4 Note: Persistent reduction for 3 months or more in an eGFR <60 mL/min/1.73 m2 defines CKD. Patients with eGFR values >/=60 mL/min/1.73 m2 may also have CKD if evidence of persistent proteinuria is present. The original MDRD equation for estimated GFR is not valid for patients less than 18 years of age. Additional information may be found at www.kdoqi.org. 5 Elevated levels of HbA1c suggest the need for more aggressive treatment of glycemia. The [place] [employer] recommends that a primary goal of therapy should be a HbA1c of <7% and that physicians should re-evaluate the treatment regimen in patients with HbA1c values consistently >8%. 6 Reference Guidelines*: Desirable: ........... < 200 mg/dL Borderline High: ..... 200-239 mg/dL High: ................ >=240 mg/dL * The National Cholesterol Education Program (NCEP) 7 Reference Guidelines*: Normal: ............. < 150 mg/dL Borderline High: .... 150-199 mg/dL High: ............... 200-499 mg/dL Very High: .......... > 500 mg/dL * Source: National Cholesterol Education Program (NCEP) 8 Reference Guidelines*: Low HDL: ..... < 40 mg/dL Normal: ..... 40-60 mg/dL Desirable: ... > 60 mg/dL *The National Cholesterol Education Program(NCEP) 9 Reference Guidelines*: Optimal:........... <100 mg/dL Near Optimal....... 100-129 mg/dL Borderline High.... 130-159 mg/dL High............... 160-189 mg/dL Very High.......... >=190 mg/dL * Source: National Cholesterol Education Program (NCEP) 10 Non- ..... 2.2-30.3 ng/mL ......... 8.1-347.6 ng/mL Post-Menopausal .. 0.7-31.5 ng/mL 11 NORMALLY MENSTRUATING FEMALES: Follicular Phase:............... 2.3-12.6 mIU/mL Mid-Cycle Peak:................. 5.2-17.5 mIU/mL Luteal Phase:................... 1.7-9.5 mIU/mL POSTMENOPAUSAL FEMALES: On menopausal hormone therapy (MHT)... 5.9-72.8 mIU/mL Not on MHT ........................... 12.7-132.2 mIU/mL 12 Pubertal adults FEMALES, menstrual cycle phases: Follicular Phase............. 1.9-12.8 mIU/mL Mid-Cycle Peak............... 22.2-76.1 mIU/mL Luteal Phase................. 0.6-13.5 mIU/mL Post-meonpausal FEMALE: On menopausal hormone therapy (MHT) ... 1.1-52.4 mIU/mL Not on MHT ............................ 8.6-61.8 mIU/mL 13 LIGHTHEADED,NAUSEA,SHAKY,FEEL LIKE WILL PASS OUT 14 <=0.49 ug/mL - Low likelihood of DIC, DVT or Pulmonary Embolism >0.49 ug/mL - Additional testing should be done to rule out DIC, DVT, or Pulmonary embolism as clinically indicated. ([facility] has established a 97.89% negative predictive value for thrombotic disease when a cutoff value of 0.5 ug/mL is used.) 15 ALLERGIC REACTION TO UNKNOWN 16 Note: Persistent reduction for 3 months or more in an eGFR <60 mL/min/1.73 m2 defines CKD. Patients with eGFR values >/=60 mL/min/1.73 m2 may also have CKD if evidence of persistent proteinuria is present. The original MDRD equation for estimated GFR is not valid for patients less than 18 years of age. Additional information may be found at www.kdoqi.org. 17 RIGHT SIDE ABD PAIN 18 A negative result for either C. trachomatis and/or N. gonorrhoeae does not preclued an infection because results are dependent on adequate specimen collection, absence of inhibitors, and sufficient DNA to be detected. 19 N89.8 20 Method: BD Affirm VPIII DNA Probe Assay 21 DIZZY, LIGHTHEADED, PALP 22 Method: Quidel QuickVue One-Step Immunoassay 23 <=0.49 ug/mL - Low likelihood of DIC, DVT or Pulmonary Embolism >0.49 ug/mL - Additional testing should be done to rule out DIC, DVT, or Pulmonary embolism as clinically indicated. ([facility] has established a 97.89% negative predictive value for thrombotic disease when a cutoff value of 0.5 ug/mL is used.) 24 CONSULT 12/25/16 10;30 CONTINOUS PAIN 25 FIRST MORNING SPECIMENS GENERALLY CONTAIN THE HIGHEST CONCENTRATION OF HCG AND ARE RECOMMENDED FOR EARLY DETECTION OF . Method: Quidel QuickVue One-Step Immunoassay 26 R53.83 27 Negative <36.0 Equivocal 36.0 - 43.9 Positive >43.9 28 Negative < 9.0 Equivocal 9.0 - 10.9 Positive >10.9 29 Negative <18.0 Equivocal 18.0 - 21.9 Positive >21.9 30 Negative <18.0 Equivocal 18.0 - 21.9 Positive >21.9 31 EBV Interpretation Chart Interpretation EBV-IgM EA(D)-IgG VCA-IgG EBNA-IgG EBV Seronegative - - - - Early Phase + - - - Acute Primary + +or- + - Infection Convalescence/Past - +or- + + Infection Reactivated +or- + + + Infection + Antibody Present - Antibody Absent Performed at: [address] [id number] Senior Internal Auditor: Dacia Little MD, Phone: [phone] 32 DIFF BREATHING W/DECREASED RESPONSIVENESS 33 CONSULT 09/24 93687 CONTINOUS PAIN 34 FIRST MORNING SPECIMENS GENERALLY CONTAIN THE HIGHEST CONCENTRATION OF HCG AND ARE RECOMMENDED FOR EARLY DETECTION OF . Method: Quidel QuickVue One-Step Immunoassay 35 R10.13 36 This test was developed and its performance characteristics determined by [facility]. It has not been cleared or approved by the Food and Drug Administration. Performed at: [address] [id number] Senior Internal Auditor: Nabeel Camacho MD, Phone: [phone] 37 [id number] This assay is used for clinical purposes and was developed, and its performance characteristics determined by [facility]. It has not been cleared or approved by the US Food and Drug Administration. The Fda has determined that such clearance or approval is not necessary. This laboratory is certified under the Clinical Laboratory Improvement Amendments of 1988 (Clia-88) as qualified to perform high complexity clinical laboratory testing. Reference Range: [id number] 38 This test was developed and its performance characteristics determined by [facility]. It has not been cleared or approved by the Food and Drug Administration. 39 INFCE Result Units: %mean normal Abnormal <41 Equivocal 41 - 67 Normal >67 Performed at: [address] [id number] Senior Internal Auditor: Nabeel Camacho MD, Phone: [phone] Performed at: [address] [id number] Senior Internal Auditor: Zi Reyes DR, Phone: [phone] 40 This test was developed and its performance characteristics determined by [facility]. It has not been cleared or approved by the Food and Drug Administration. 41 Note: Persistent reduction for 3 months or more in an eGFR <60 mL/min/1.73 m2 defines CKD. Patients with eGFR values >/=60 mL/min/1.73 m2 may also have CKD if evidence of persistent proteinuria is present. The original MDRD equation for estimated GFR is not valid for patients less than 18 years of age. Additional information may be found at www.kdoqi.org. 42 Values below the stated reference ranges of AST and ALT can be seen in normal populations. Clinical correlation is suggested. 43 [id number] This assay is used for clinical purposes and was developed, and its performance characteristics determined by [facility]. It has not been cleared or approved by the US Food and Drug Administration. The FDA has determined that such clearance or approval is not necessary. This laboratory is certified under the Clinical Laboratory Improvement Amendments of 1988 (CLIA-88) as qualified to perform high complexity clinical laboratory testing. REFERENCE RANGE: [id number] 44 R HAND FINGERS NUMB, BACK PAIN, L LEG SHARP PAIN 45 R63.5 46 The specimen received for QuantiFERON testing was incubated by the ordering institution. Specific procedures outlined in our Directory of Services and in the package insert for the QuantiFERON Gold (In Tube) test must be followed to enable for proper stimulation of cells for the production of interferon gamma. 47 To be considered positive a specimen should have a TB Ag minus Nil value greater than or equal to 0.35 IU/mL and in addition the TB Ag minus Nil value must be greater than or equal to 25% of the Nil value. There may be insufficient information in these values to differentiate between some negative and some indeterminate test values. 48 The QuantiFERON TB Gold (in Tube) assay is intended for use as an aid in the diagnosis of TB infection. Negative results suggest that there is no TB infection. In patients with high suspicion of exposure, a negative test should be repeated. A positive test indicates infection with Mycobacterium tuberculosis. Among individuals without tuberculosis infection, a positive test may be due to exposure to M. kansasii, M. szulgai or M. marinum. On the Internet, go to cdc.gov/tb for further details. Performed at: RN - [facility] [address] [id number] Senior Internal Auditor: Dacia Little MD, Phone: [phone] 49 Please Note: A nonreactive test result does not exclude the possibility of exposure to, or infection with syphilis. T. pallidum antibodies may be undetectable in some stages of the infection and in some clinical conditions. 50 HBsAg not detected; does not exclude the possibility of exposure to or early acute infections with HBV. 51 POSSIBLE UROGENITAL CONTAMINATION. 52 06/20/15 LAB.DWM Deleted by [facility] 53 Organism 1 ! URETHRAL ÁNGELA Quantity ! 10,000 - 50,000 CFU/mL 54 Organism 1 ! BETA STREPTOCOCCUS GROUP B Quantity ! FROM BROTH RECOMMENDED THERAPY: ! PENICILLIN OR AMPICILLIN. 55 Unable to determine results due to possible interfering substance. Specimen recollection is recommended if clinically indicated. A negative result for either C. trachomatis and/or N. gonorrhoeae does not preclued an infection because results are dependent on adequate specimen collection, absence of inhibitors, and sufficient DNA to be detected. 56 GRAM STAIN ! GRAM STAIN SUSPICIOUS FOR BACTERIAL VAGINOSIS ! MANY GRAM VARIABLE COCCOBACILLI ! FEW GRAM POSITIVE COCCI 57 Organism 1 ! BETA STREPTOCOCCUS GROUP B Quantity ! MODERATE RECOMMENDED THERAPY: ! PENICILLIN OR AMPICILLIN. Organism 2 ! GARDNERELLA VAGINALIS Quantity ! MANY 58 NO BETA STREPTOCOCCI ISOLATED 59 11/27/13 LAB.CKS Deleted by [facility] 60 POSSIBLE UROGENITAL CONTAMINATION. 61 Note: Persistent reduction for 3 months or more in an eGFR <60 mL/min/1.73 m2 defines CKD. Patients with eGFR values >/=60 mL/min/1.73 m2 may also have CKD if evidence of persistent proteinuria is present. The original MDRD equation for estimated GFR is not valid for patients less than 18 years of age. Additional information may be found at www.kdoqi.org. 62 COLONY COUNT ! 20,000-30,000 CFU/ml Organism 1 ! URETHRAL ÁNGELA 63 CYTOLOGY SCREENER - PAPER CUTTING MACHINE OPERATOR @ 05/12 Screened by: Amelia Milan [facility](ASCP) PAP: FINAL REPORT SPECIMEN ADEQUACY: SPECIMEN SATISFACTORY FOR INTERPRETATION INTERPRETATION: NEGATIVE FOR INTRAEPITHELIAL LESION OR MALIGNANCY BENIGN REACTIVE SQUAMOUS CELL CHANGES COMMENT: SHIFT IN ÁNGELA SUGGESTIVE OF BACTERIAL VAGINOSIS MODERATE INFLAMMATION THINPREP PREPARED PAP SLIDE # Prepared in the Cytology laboratory from the ThinPrep sample is 1 ThinPrep smear. PAP ACCESSI QUESTIONNAIRE 04/10 PERTINENT CLINICAL HISTORY FOR PAP (PAPER CUTTING MACHINE OPERATOR) CYTOLOGY (Check all that apply): ? N Post ? Y Menopause? N LMP date: If patient had related surgical procedure: Related Therapy: Significant Clinical History: ==== DISCLAIMER: The Pap smear is a screening test and not a diagnostic procedure. False negative and false positive results can and do occur for a number of reasons. Regular screening provides an aid in detecting treatable cervical abnormalities, but should not be used as the only means for detecting cervical dysplasia and carcinoma. ---- Signed SHILOH PACE MD 04/15/13 1502 ---- 64 PENDING; TEST PERFORMED ON MONDAYS AND THURSDAYS 65 100.0750 02/22/13 LAB.MPK MANUAL TESTING REQUIRED 66 Acceptable specimens for this test are male urethral swab, endocervical swab and liquid based pap specimens, vaginal swabs in APTIMA transports and first void urine. See online Directory of Services for test number for rectal and pharyngeal specimens. Performed at: [address] [id number] Senior Internal Auditor: Dacia Little MD, Phone: [phone] 67 NO GROUP B STREPTOCOCCI ISOLATED 68 Acceptable specimens for this test are male urethral swab, endocervical swab and liquid based pap specimens, vaginal swabs in APTIMA transports and first void urine. See online Directory of Services for test number for rectal and pharyngeal specimens. Performed at: [facility] [address] [place], [place] [id number] Senior Internal Auditor: Dacia Little MD, Phone: [phone] 69 POST GLUCOLA 70 POSSIBLE UROGENITAL CONTAMINATION. 71 Note: Persistent reduction for 3 months or more in an eGFR <60 mL/min/1.73 m2 defines CKD. Patients with eGFR values >/=60 mL/min/1.73 m2 may also have CKD if evidence of persistent proteinuria is present. The original MDRD equation for estimated GFR is not valid for patients less than 18 years of age. Additional information may be found at www.kdoqi.org. 72 CULTURE TO FOLLOW 73 NO SPECIMEN SENT CALLED MARILYN Rob AND HE VERIFIED NO SPECIMEN 74 10/06/12 LAB.DWM Deleted by [facility] 75 COLONY COUNT ! 50,000 - 60,000 CFU/ml Organism 1 ! MIXED URETHRAL ÁNGELA 76 No reportable results 77 HBsAg not detected; does not exclude the possibility of exposure to or early acute infections with HBV. 78 The Centers for Disease Control and Prevention states blood lead levels less than 10 ug/dL in children have been associated with numerous adverse health effects. [facility] Guidelines: Blood lead levels in the range 5-9 ug/dL have been associated with adverse health effects in children aged 6 years and younger. Environmental Exposure: WHO Recommendation <20 Occupational Exposure: OSHA Lead Std 40 Detection Limit=1 79 PENDING; TEST PERFORMED ON MONDAYS AND THURSDAYS 80 Nonimmune <0.91 Equivocal 0.91 - 1.09 Immune >1.09 Performed at: RN - [facility] [address] [id number] Senior Internal Auditor: Dacia Little MD, Phone: [phone] 79 Approximate Gestational Age and Total BHCG Range: 0.2 - 1 Week........................5-50 mIU/mL 1 - 2 Weeks.....................50- 500 mIU/mL 2 - 3 Weeks..................100-5,000 mIU/mL 3 - 4 Weeks.................500-10,000 mIU/mL 4 - 5 Weeks...............1,000-50, 000 mIU/mL 5 - 6 Weeks.............10,000-100,000 mIU/mL 6 - 8 Weeks.............15,000-200,000 mIU/mL 2 - 3 Months............10,000-100, 000 mIU/mL 82 07/28/12 LAB.TOW Deleted by Reflex Group UACOM 83 POSSIBLE UROGENITAL CONTAMINATION. 84 RESULT: Herpes simplex type I DNA detected. -- REFERENCE VALUE -- Not applicable Analyte Specific Reagent: This test was developed and its performance characteristics determined by [facility]. It has not been cleared or approved by the U.S. Food and Drug Administration. Test Performed by: [facility] [address] [place] [address] Funeral Car Driver: Eddie Low III, M.D. 85 HPV,high-risk Positive This HPV test detects thirteen high-risk types (16/18/31/33/35/39/45/51/52/56/58/59/68) without differentiation. Testing Performed By: [email or web address] [place], [address] [place] [id number] 86 NEGATIVE FOR CHLAMYDIA TRACHOMATIS BY DNA HYBRIDIZATION ASSAY. THIS TEST IS APPROVED FOR OCULAR AND UROGENITAL SITES ONLY. 87 NEGATIVE FOR NEISSERIA GONORRHOEAE BY DNA HYBRIDIZATION ASSAY. THIS METHOD IS APPROVED FOR UROGENITAL SITES ONLY. 88 Organism 1 ! GARDNERELLA VAGINALIS QUANTITY ! MODERATE 89 GRAM STAIN ! GRAM STAIN INDETERMINANT FOR BACTERIAL VAGINOSIS ! MODERATE GRAM VARIABLE COCCOBACILLI 90 Because ethnic data is not always readily available, this report includes an eGFR for both -Americans and non- Americans. The National Kidney Disease Education Program (NKDEP) does not endorse the use of the MDRD equation for patients that are not between the ages of 18 and 70, are , have extremes of body size, muscle mass, or nutritional status, or are non- or non-. According to the National Kidney Foundation, irrespective of diagnosis, the stage of the disease is based on the level of kidney function: Stage Description GFR(mL/min/1.73 m(2)) 1 Kidney damage with normal or decreased GFR 90 2 Kidney damage with mild decrease in GFR 60- 89 3 Moderate decrease in GFR 30-59 4 Severe decrease in GFR 15-29 5 Kidney failure <15 (or dialysis) 91 Values >10 mIU/ML considered IMMUNE 92 Negative <0.91 Equivocal 0.91 - 1.09 Positive >1.09 Presence of antibodies to Mumps is presumptive evidence of immunity except when active infection is suspected. Performed at: [facility] [address] [place], [place] [id number] Senior Internal Auditor: Dacia Little MD, Phone: [phone] 93 Negative <0.91 Equivocal 0.91 - 1.09 Positive >1.09 Presence of antibodies to Rubeola is presumptive evidence of immunity except when active infection is suspected. 94 CYTOLOGY SCREENER - PAPER CUTTING MACHINE OPERATOR @ 05/12 Screened by: KAITY Quiroz(ASCP) PAP: FINAL REPORT SPECIMEN ADEQUACY: SPECIMEN SATISFACTORY FOR INTERPRETATION INTERPRETATION: NEGATIVE FOR INTRAEPITHELIAL LESION OR MALIGNANCY BENIGN REACTIVE SQUAMOUS CELL CHANGES COMMENT: SHIFT IN ÁNGELA SUGGESTIVE OF BACTERIAL VAGINOSIS THINPREP PREPARED PAP SLIDE # Prepared in the Cytology laboratory from the ThinPrep sample is 1 ThinPrep smear. PAP ACCESSI QUESTIONNAIRE 04/10 PERTINENT CLINICAL HISTORY FOR PAP (PAPER CUTTING MACHINE OPERATOR) CYTOLOGY (Check all that apply): ? Post ? Y Menopause? LMP date: 10/14/11 If patient had related surgical procedure: Related Therapy: Significant Clinical History: PAP ==== DISCLAIMER: The Pap smear is a screening test and not a diagnostic procedure. False negative and false positive results can and do occur for a number of reasons. Regular screening provides an aid in detecting treatable cervical abnormalities, but should not be used as the only means for detecting cervical dysplasia and carcinoma. ---- SHILOH Jones MD 11/08/11 1323 ---- 95 ------ RUN DATE: 10/15/11 [facility] NMI LIVE PAGE 1 RUN TIME: 1438 Specimen Inquiry RUN USER: INTERFACE ---- Name: TIRSO JONES Ana Laura Status: DEP CLI Re02/10 Age/Sex: 20/F Unit#: [id number] Location: [facility] : 86 ---- SPEC #: [id number] JEFF: 10/10/11 STATUS: COMP REQ #: [id number] RECD: 10/11/[address]: Malu JARQUIN,Toyin SOURCE: STOOL ENTR: 10/11/[address] [facility] [address]: Jennifer Hunt MD [facility]: ORDERED: STOOL CULTURE, O P: YOGI/Julia IBRAHIM DIFF AMP DNA ACT WKST: TISHA 10/11/11 #2 ---- Procedure Result Verified Site ---- > STOOL CULT SENSITIVITY Final 10/13/11-1018 ML NEGATIVE FOR THE ENTERIC PATHOGENS - SALMONELLA, SHIGELLA, AEROMONAS, PLESIOMONAS AND YERSINIA. VIBRIO AND E. COLI 0157 NOT ROUTINELY TESTED FOR IN A STOOL CULTURE. PLEASE SUBMIT SAMPLE WITH SPECIFIC REQUEST FOR DESIRED ORGANISM(S). > STOOL SPECIMEN DESCRIPTION Final 10/11/11-1612 ML STOOL COLOR LIGHT BROWN STOOL FORM NONFORMED STOOL CONSISTENCY LIQUID > CAMPYLOBACTER CULTURE Final 10/13/11-1018 ML NO GROWTH OF CAMPYLOBACTER AFTER 48 HOURS > SHIGA TOXIN 1 AND 2 (EHEC) Final 10/15/11- 1438 ML SHIGA TOXIN 1 NEGATIVE BY IMMUNOCHROMATOGRAPHIC ASSAY SHIGA TOXIN 2 NEGATIVE BY IMMUNOCHROMATOGRAPHIC ASSAY > O P: GIARDIA/CRYPTO SCREEN Final 10/11/11- 1626 ML GIARDIA ANTIGEN NEGATIVE BY IMMUNOASSAY CRYPTOSPORIDIUM ANTIGEN NEGATIVE BY IMMUNOASSAY Giardia and cryptosporidium antigen testing performed by immunoassay. If patient is immunocompromised or has traveled to or is from a developing country, a full ova and parasite exam with microscopic (OPMIC) is recommended. All samples will be held one month in case full ova and parasite testing is requested. Contact the Microbiology Department at [phone]. TEST LIMITATIONS: As with all diagnostic procedures, the results obtained should be used in conjunction with other clinical information available the physician. Negative results can occur in samples containing antigen below lower limits of ---- DEPARTMENT OF PATHOLOGY, [address] [place] [address] [facility] Permit #[id number] Dale Ghosh M.D. Car Sealer ---- ---- RUN DATE: 10/15/11 [facility] NMI LIVE PAGE 2 RUN TIME: 1438 Specimen Inquiry RUN USER: INTERFACE ---- Name: TIRSO JONES Status: ZANA SALGADO Re02/10 Age/Sex: 20/F Unit#: [id number] Location: [facility] : 86 -- -- CONTINU ED ---- ---- Procedure Result Verified Site ---- O P: GIARDIA/CRYPTO SCREEN Final (continued) 10/11/11-1626 detection of the assay. The use of colonic washes, aspirates or other diluted sample types has not been established and could affect the performance of the assay. Stool samples contaminated with an oily or particulate base (eg. Barium, mineral oil etc.) could interfere with the test and are not recommended. > C. DIFFICILE AMPLIFIED DNA Final 10/11/11-1528 ML C. DIFFICILE AMPLIF DNA NEGATIVE: NO TOXIGENIC C. DIFFICILE DETECTED. TEST LIMITATIONS: Assay does not distinguish between viable and non-viable organisms. Test results are to be used in conjunction with information available from the patient clinical evaluation and other diagnostic procedures. Two distinct groups have been identified that can harbor C. difficile asymptomatically at very high rates. Colonization at rates up to 50% and higher have been reported in infants and rates up to 32% in cystic fibrosis patients. ---- [facility] Permit #[id number] [address] [place] [address] ---- DEPARTMENT OF PATHOLOGY, [address] [place] [address] [facility] Permit #[id number] Morgan Aguilra M.D. Director Christiano Barrios M.D. Car Sealer ---- 96 Anion gap measurement may be of limited value in the presence of any alkalosis, especially in a combined acid base disorder. . 97 A metabolite of Naproxen, O-desmethylnaproxen, has been shown to interfere with the [place]-Katie method for measuring total bilirubin. Samples from patients who have taken Naproxen have shown spurious elevation in total bilirubin levels. 98 Because ethnic data is not always readily available, this report includes an eGFR for both -Americans and non- Americans. The National Kidney Disease Education Program (NKDEP) does not endorse the use of the MDRD equation for patients that are not between the ages of 18 and 70, are , have extremes of body size, muscle mass, or nutritional status, or are non- or non-. According to the National Kidney Foundation, irrespective of diagnosis, the stage of the disease is based on the level of kidney function: Stage Description GFR(mL/min/1.73 m(2)) 1 Kidney damage with normal or decreased GFR 90 2 Kidney damage with mild decrease in GFR 60- 89 3 Moderate decrease in GFR 30-59 4 Severe decrease in GFR 15-29 5 Kidney failure <15 (or dialysis) 99 PENDING; TEST PERFORMED ON MONDAYS AND THURSDAYS 100 NO GROUP B STREPTOCOCCI ISOLATED 101 Note: Persistent reduction for 3 months or more in an eGFR <60 mL/min/ 1.73 m2 defines CKD. Patients with eGFR values >/=60 mL/min/1.73 m2 may also have CKD if evidence of persistent proteinuria is present. The original MDRD equation for estimated GFR is not valid for patients less than 18 years of age. Additional information may be found at www.kdoqi.org. 102 POST GLUCOLA 103 NO SPECIMEN RECEIVED 104 NO SPECIMEN RECEIVED 105 ------- RUN DATE: 04/06/11 [facility] NMI LIVE PAGE 1 RUN TIME: 811 Specimen Inquiry RUN USER: INTERFACE ---- Name: TIRSO JONES Status: DEP CLI Re06/10 Age/Sex: 20/F Unit#: [id number] Location: [facility] : 86 ---- SPEC #: [id number] JEFF: 04/03/11 STATUS: COMP REQ #: [id number] RECD: 04/04/11-[address] [facility] [address]: Med JARQUIN,Courtney Burkett SOURCE: THROAT ENTR: 04/04/11-[address] [facility] [address]: Marilee JARQUIN,Jennifer [facility]: ORDERED: THROAT-BETA STR ACT WKST: BS 04/06/11 #1 ---- Procedure Result Verified Site ---- > THROAT-BETA STREP CULTURE Final 04/06/11-811 ML NEGATIVE FOR GROUP A BETA STREPTOCOCCUS ---- - [facility] Permit #[id number] [address] [place] [address] ---- DEPARTMENT OF PATHOLOGY, [address] [place] [address] [facility] Permit #[id number] Morgan Aguilar M.D. Director Christiano Barrios M.D. Car Sealer ---- 106 * MALES: < 5.0 MIU/ML NON FEMALES < 5.0 MIU/ML APPROX GESTATIONAL AGE APPROX HCG RANGE 0-1 WEEK < 5.0-50 1-2 WEEKS 50-500 2-3 WEEKS 100-5000 3-4 WEEKS 500-10,000 1-2 MONTHS 10,000-200,000 2-3 MONTHS 15,000-100,000 PLEASE NOTE: The intended use of this assay is the quantitative determination of HCG in human serum or plasma for the early detection of . These assays should not be used to diagnose any condition unrelated to . If an HCG level is inconsistent with, or unsupported by, clinical evidence, results should be confirmed by an alternate HCG method. . 107 OPERATION/PROCEDURE Laparoscopic cholecystectomy DIAGNOSIS: "GALLBLADDER": CHRONIC CHOLECYSTITIS, AND CHOLELITHIASIS. NO EVIDENCE OF ACUTE INFLAMMATION, DYSPLASIA NOR NEOPLASIA APPRECIATED. WYS/shweta GROSS The specimen is received in formalin labeled, "GALLBLADDER". This measures 9.3 x 2.8 x 2.8 cm. arceo-purple, soft gallbladder with a smooth serosal surface. Upon opening there are numerous stones, arceo-yellow, measuring up to 1.3 cm. in greatest dimension filling the entire gallbladder. The wall of the gallbladder measures up to 0.3 cm. in thickness. The mucosa is arceo-brown and rubbery without alberto streaks. No tumor necrosis nor hemorrhage is seen. Trapeze Performer sections are submitted in one block. BRIGHT/shweta MICROSCOPIC Sections show gallbladder mucosa lined by columnar epithelium with focal synechia, and Rokitansky-Aschoff sinus formation. The submucosa has a mild infiltrate of lymphocytes and plasma cells. The muscular wall is slightly fibrotic and hypertrophied. PRE OPERATIVE DIAGNOSIS Cholelithiasis, chronic cholecystitis. REVIEW CODE CODE: I NABEEL Quach MD 10/12/10 1148 108 QUERY: @BANNER Pat ID: QUERY: @EMR Req #: [id number] 10/09/10 LAB.RAB Deleted by Reflex Group UACOM 110 POSSIBLE UROGENITAL CONTAMINATION. Procedures Date Code Description Status 05/27/2017 38428 Pulse Oximetry Completed 04/12/2017 07579 Echocardiogram Complete Completed 04/12/2017 00190 Event Monitor Inter/Review Only Completed 03/04/2017 83698 EKG-Tracing And Report Completed 01/01/2017 02765 Arthroscopy synovectomy limited (separate procedure) Completed 09/27/2016 03602 Arthroscopy synovectomy limited (separate procedure) Completed 09/27/2016 66408 Arthroscopy knee w/wo synovial biopsy Completed 08/08/2016 40730 EGD With Biopsy Completed 07/19/2016 93396 Exc Benign Lesion Except Skin Tag-Trunk,Arm,Or Legs 1.1 Completed To 2.0CM 08/11/2015 86955 Post- Care Only Completed 06/23/2015 05300 Vaginal Delivery Global Care Completed 06/16/2015 23330 Antepartum 7 Or More Total Office Visit Completed 06/09/2015 00355 Antepartum 7 Or More Total Office Visit Completed 06/02/2015 10872 Antepartum 7 Or More Total Office Visit Completed 05/18/2015 45930 Antepartum 7 Or More Total Office Visit Completed 05/05/2015 46031 Antepartum 7 Or More Total Office Visit Completed 04/28/2015 11797 Antepartum 7 Or More Total Office Visit Completed 04/13/2015 38221 Antepartum 7 Or More Total Office Visit Completed 03/23/2015 77182 Antepartum 7 Or More Total Office Visit Completed 02/21/2015 34975 Antepartum 7 Or More Total Office Visit Completed 01/19/2015 13985 Antepartum 7 Or More Total Office Visit Completed 04/14/2013 14668 Post- Care Only Completed 03/23/2013 39206 Insertion, Non-Biodegradable Drug Delivery Implant Completed 02/23/2013 37203 Vaginal Delivery Global Care Completed 02/23/2013 10439 Anesthesia,Neuraxial Labor Completed 02/17/2013 09652 Antepartum 7 Or More Total Office Visit Completed 02/10/2013 93063 Antepartum 7 Or More Total Office Visit Completed 02/03/2013 02401 Antepartum 7 Or More Total Office Visit Completed 01/27/2013 45359 Antepartum 7 Or More Total Office Visit Completed 01/13/2013 68061 Antepartum 7 Or More Total Office Visit Completed 01/01/2013 51725 Antepartum 7 Or More Total Office Visit Completed 12/30/2012 32343 Antepartum 7 Or More Total Office Visit Completed 12/08/2012 03032 Antepartum 7 Or More Total Office Visit Completed 11/04/2012 89244 Antepartum 7 Or More Total Office Visit Completed 09/29/2012 29563 Antepartum 7 Or More Total Office Visit Completed 08/26/2012 12101 Antepartum 7 Or More Total Office Visit Completed 11/06/2011 49688 Post- Care Only Completed 08/04/2011 10183 Vaginal Delivery Global Care Completed 08/03/2011 43535 Anesthesia,Neuraxial Labor Completed 07/30/2011 31059 Antepartum 7 Or More Total Office Visit Completed 07/24/2011 45024 Antepartum 7 Or More Total Office Visit Completed 07/17/2011 41621 Antepartum 7 Or More Total Office Visit Completed 07/03/2011 90451 Antepartum 7 Or More Total Office Visit Completed 06/19/2011 49252 Antepartum 7 Or More Total Office Visit Completed 06/05/2011 89371 Antepartum 7 Or More Total Office Visit Completed 05/21/2011 44137 Antepartum 7 Or More Total Office Visit Completed 04/19/2011 60331 Antepartum 7 Or More Total Office Visit Completed 03/19/2011 29538 Antepartum 7 Or More Total Office Visit Completed 02/27/2011 82188 Antepartum 7 Or More Total Office Visit Completed 02/14/2011 16117 Antepartum 7 Or More Total Office Visit Completed 02/01/2011 86517 Antepartum 7 Or More Total Office Visit Completed 01/09/2011 38728 Antepartum 7 Or More Total Office Visit Completed 10/10/2010 96181 Laparoscopy; cholecystectomy Completed 10/10/2010 25227 Anesthesia, Upper Abdomen Surgery Not Otherwise Spec Completed 08/03/2010 00350 Post- Care Only Completed 05/01/2010 81664 Vaginal Delivery Global Care Completed 04/30/2010 64872 Anesthesia,Neuraxial Labor Completed 04/18/2010 29061 Antepartum 7 Or More Total Office Visit Completed 04/04/2010 34488 Antepartum 7 Or More Total Office Visit Completed 03/21/2010 39272 Antepartum 7 Or More Total Office Visit Completed 02/28/2010 02829 Antepartum 7 Or More Total Office Visit Completed 01/30/2010 61825 Antepartum 7 Or More Total Office Visit Completed 01/12/2010 73895 Antepartum 7 Or More Total Office Visit Completed 12/29/2009 64078 Antepartum 7 Or More Total Office Visit Completed 11/29/2009 26452 Antepartum 7 Or More Total Office Visit Completed 11/16/2009 14706 Antepartum 7 Or More Total Office Visit Completed 11/08/2009 16245 Antepartum 7 Or More Total Office Visit Completed 10/25/2009 45083 Antepartum 7 Or More Total Office Visit Completed 12/03/2008 24422678 Colonoscopy Completed Encounters Type Date Location Provider Dx Diagnosis Office Visit 06/23/2018 Family Medicine Joe Dominguez MD Z32.01 Encounter for 1:45p [address] test, result positive Office Visit 05/12/2018 Family Medicine Alysa Guzmán, K64.9 Unspecified 11:30a [address] PNP-BC, PRODUCTION MACHINE TENDER, hemorrhoids Ibclc N39.0 Urinary tract infection, site not specified G47.00 Insomnia, unspecified Z32.02 Encounter for test, result negative Office Visit 10/07/2017 2:30p Family Medicine Ramirez, F17.[address] Alysa, dependence, PNP-BC, PRODUCTION MACHINE TENDER, cigarettes, Ibclc uncomplicated E66.9 Obesity, unspecified F33.1 Major depressive disorder, recurrent, moderate F41.9 Anxiety disorder, unspecified Office Visit 09/10/2017 4:00p Family Medicine Alysa Guzmán, M25.541 Pain in joints [address] PNP-BC, PRODUCTION MACHINE TENDER, of right hand Ibclc E66.9 Obesity, unspecified Office Visit 07/04/2017 11:00a Family Medicine Sierra Mabry, F33.1 Major depressive Adama GRAVES M.Yuli disorder, recurrent, moderate R03.0 Elevated blood-pressure reading, w/o diagnosis of htn Office Visit 05/27/2017 2:30p Family Alysa Duran, R63.[address] PNP-BC, PRODUCTION MACHINE TENDER, gain Ibclc J20.9 Acute bronchitis, unspecified E28.2 Polycystic ovarian syndrome Z13.220 Encounter for screening for lipoid disorders Office Visit 04/23/2017 11:15a Surgical Office Celena Childress64.2 Third degree Brien, hemorrhjessie JARQUIN,FACS Office Visit 04/23/2017 8:30a GI Gayle K64.8 Other hemorrhoids MD Spencer K60.2 Anal fissure, unspecified R19.5 Other fecal abnormalities Office Visit 03/27/2017 9:30a Family Medicine Sierra Mabry F33.1 Major depressive [place] M.Yuli disorder, recurrent, moderate E28.2 Polycystic ovarian syndrome K21.9 Gastro-esophageal reflux disease without esophagitis N89.8 Other specified noninflammatory disorders of vagina Office Visit 03/04/2017 Cardiology Davidenko, T78.2xxA Anaphylactic 10:00a Office Francisco Bowens M.D., shock, FACC unspecified, initial encounter R55 Syncope and collapse R00.2 Palpitations Office Visit 02/13/2017 1:15p Orthopaedic Office Patricia, Yaniv, M67.51 Plica syndromeDiane. right knee M94.261 Chondromalacia, right knee M17.12 Unilateral primary osteoarthritis, left knee Office Visit 12/21/2016 10:30a [facility] Sierra Mabry, F33.1 Major depressive Adama GRAVES M.D. disorder, recurrent, moderate F41.9 Anxiety disorder, unspecified K21.9 Gastro-esophageal reflux disease without esophagitis Office Visit 11/21/2016 11:45a [facility] Medicine Sierra Mabry, F33.1 Major depressive Adama GRVAES M.D. disorder, recurrent, moderate F41.9 Anxiety disorder, unspecified E28.2 Polycystic ovarian syndrome Office Visit 10/23/2016 1:00p [facility] Medicine Ramirez, B27.90 Infectious [place] Watt, mononucleosis, PNP-BC, PRODUCTION MACHINE TENDER, unspecified without Ibclc complication Office Visit 10/09/2016 11:30a [facility] Ramirez J02.9 Acute pharyngitis, [place] Watt, unspecified PNP-BC, PRODUCTION MACHINE TENDER, Ibclc R53.83 Other fatigue Office Visit 10/03/2016 [facility] Sierra Mabry, T78.2xxD Anaphylactic 9:45a Adama GRAVES M.D. shock, unspecified, subsequent encounter Office Visit 10/01/2016 [facility] Medicine Thelma, T78.2xxA Anaphylactic 11:45a [place] Christopher shock, , PRODUCTION MACHINE TENDER unspecified, initial encounter Office Visit 09/19/2016 Orthopaedic Patricia, M25.562 Pain in left knee 8:45a Office Dale Purvis Office Visit 09/12/2016 Orthopaedic Patricia M25.562 Pain in left knee 1:45p Office Dale Purvis Office Visit 08/22/2016 Family Medicine Cortez M25.562 Pain in left knee 1:00p [place] Goff, PRODUCTION MACHINE TENDER-C Office Visit 08/21/2016 GI Gayle, R10.13 Epigastric pain 1:15p MD Spencer Office Visit 08/02/2016 [facility] Sierra Mabry, L72.3 Sebaceous cyst 9:15a Adama GRAVES M.D. Office Visit 07/26/2016 GI Gayle, R10.13 Epigastric pain 11:00a MD Spencer Office Visit 07/19/2016 [facility] Sierra Mabry, L72.3 Sebaceous cyst 4:45p Adama GRAVES M.D. Z87.11 Personal history of peptic ulcer disease R10.13 Epigastric pain Office Visit 02/21/2016 1:30p [facility] Sierra Mabry, E28.2 Polycystic Adama GRAVES M.D. ovarian syndrome R63.5 Abnormal weight gain F17.210 Nicotine dependence, cigarettes, uncomplicated Office Visit 12/08/2015 [facility] Sierra Mabry, M26.60 Temporomandibular joint 3:00p Misael Galan M.D. disorder, unspecified RD Z23 Encounter for immunization Office Visit 12/20/2014 2:30p [facility] Marilee Z33.1 state, [place] ELY Rodriguez MD incidental Z00.00 Encntr for general adult medical exam w/o abnormal findings Office Visit 08/30/2010 Surgical Moheiyurii, 574.10 Calculus 8:00a Office Lance Nj, Gallbladder W/ MKristy Other Cholecystitis W/O Obstruction 305.1 Tobacco Use Disorder Plan of Treatment 06/23/2018 - Joe Dominguez MDZ32.01 Encounter for test, result positiveNew Medication: Adult Gummy/Dha/Folic Acid 0.4-25 mg - 1 tab by mouth every day as directedNew Labs:CBC W/Automated Diff, Ordered: Comprehensive Metabolic Panel, Ordered: 06/23/18LDL Cholesterol Profile, Ordered: 06/23/18Glycohemoglobin A1c, Ordered: 06/23/18HCG, Quant, Ordered: HCG, Quant, Scheduled: 06/30/18Referral:[facility], senior data quality analyst/ Phys/Osteo
[2018-07-19 13:36] VITALS: BP 98/59
--- NOTE | 2018-07-19 13:59 | UC ---
Throat Pain/Nasal Miko HPI - HPI Summary HPI Summary: Pty c/o of cough, nasal congestion and ST X 1 week. Pt denies fever. Has not taken anything OTC to improve/manage symptoms - History of Current Complaint Chief Complaint: UCGeneralIllness Stated Complaint: THROAT,COUGH,SINUES Time Seen by Provider: 07/19/18 13:42 Hx Obtained From: Patient Hx Last Menstrual Period: 12/03/17 ?: No Onset/Duration: Gradual Onset, Lasting Days, Still Present Severity: Mild Pain Intensity: 3 Cough: Nonproductive Associated Signs & Symptoms: Positive: Sinus Discomfort, Nasal Discharge - Epiglottits Risk Factors Epiglottis Risk Factors: Negative - Allergies/Home Medications Allergies/Adverse Reactions: Allergies Allergy/AdvReac Type Severity Reaction Status Date / Time azithromycin Allergy Hives Verified 07/19/18 13:32 hydrocodone Allergy Anaphylatic Verified 07/19/18 13:32 Shock oxycodone Allergy Anaphylatic Verified 07/19/18 13:32 Shock Home Medications: Home Medications Pnv No.95/Ferrous Fum/Folic AC [ Tablet] 1 tab PO DAILY 07/19/18 [ History Confirmed 07/19/18] Prochlorperazine TAB* [Compazine Tab*] 5 mg PO Q4HR PRN 07/19/18 [History Confirmed 07/19/18] PMH/Surg Hx/FS Hx/Imm Hx Previously Healthy: Yes - Surgical History Surgical History: Yes Surgery Procedure, Year, and Place: GALL BLADDER, SEBCEOUS CYSTS REMOVED FROM NECK. ARTHROSCOPY BILATERAL KNEES. GASTRIC BYPASS - Family History Known Family History: Positive: Cardiac Disease - Social History Occupation: Employed Full-time Lives: With Family Alcohol Use: None Substance Use Type: None Smoking Status (MU): Current Every Day Smoker Type: Cigarettes Amount Used/How Often: 3 cigarettes daily Have You Smoked in the Last Year: Yes - Immunization History Vaccination Up to Date: Yes Review of Systems All Other Systems Reviewed And Are Negative: Yes Constitutional: Positive: Negative Skin: Positive: Negative Eyes: Positive: Negative ENT: Positive: Sore Throat, Nasal Discharge, Sinus Congestion, Sinus Pain/ Tenderness Respiratory: Positive: Cough Cardiovascular: Positive: Negative Gastrointestinal: Positive: Negative Genitourinary: Positive: Negative Motor: Positive: Negative Neurovascular: Positive: Negative Musculoskeletal: Positive: Negative Neurological: Positive: Negative Psychological: Positive: Negative Is Patient Immunocompromised?: No Physical Exam Triage Information Reviewed: Yes Appearance: Well-Appearing Vital Signs: Initial Vital Signs Temp 98.3 F 07/19/18 13:32 Pulse 78 07/19/18 13:32 Resp 15 07/19/18 13:32 BP 98/59 07/19/18 13:32 Pulse Ox 100 07/19/18 13:32 Vital Signs Reviewed: Yes Eye Exam: Normal ENT: Positive: Nasal congestion, TM bulging Dental Exam: Normal Neck exam: Normal Respiratory Exam: Normal Cardiovascular Exam: Normal Musculoskeletal Exam: Normal Neurological Exam: Normal Psychological Exam: Normal Skin Exam: Normal Throat Pain/Nasal Course/Dx - Differential Dx/Diagnosis Differential Diagnosis/HQI/PQRI: Otitis Media, URI Provider Diagnosis: Viral syndrome Discharge - Sign-Out/Discharge Documenting (check all that apply): Patient Departure All imaging exams completed and their final reports reviewed: No Studies - Discharge Plan Condition: Stable Disposition: HOME Prescriptions: Cetirizine* [ZyrTEC 10 MG TAB*] 10 mg PO DAILY #10 tab Guaifenesin/Pseudoephedrne HCl [Mucinex D ER 600-60 mg Tablet] 1 each PO Q12H # 14 tab.er.12h Patient Education Materials: Viral Syndrome (ED) Referrals: Alysa Guzmán NP [Primary Care Provider] - If Needed - Billing Disposition and Condition Condition: STABLE Disposition: Home - Attestation Statements Provider Attestation: Chart reviewed. I was available for consult. I did not see nor disposition this patient.
== END 2018-07-19 14:18 | disposition home or self-care (01) ==
LOC: UCCORT 13:07
DX: B34.9 Viral infection, unspecified (principal); R05 Cough; R09.81 Nasal congestion; F17.210 Nicotine dependence, cigarettes, uncomplicated; Z88.1 Allergy status to other antibiotic agents; Z88.5 Allergy status to narcotic agent
CPT/HCPCS: 99212; G0463